=== PATIENT | female | born 1960 | race Caucasian/White ===

== ENCOUNTER 2017-01-21 10:21 | Inpatient (IN) | payer OTHER ==
[~2017-01-21] VITALS: Ht 156.2 cm; Wt 67.3 kg
[~2017-01-21 10:21] MED LIST: ALPR0.5O4 PO; BENA5TAB13 PO; CHOL50002 PO; PAX20; PRAV40TA PO; ROPI5TAB PO; ZOLP10TA1
[2017-01-21 10:32] VITALS: BP 151/105
[2017-01-21] MEDS ORDERED: NACL 0.9% 1,000 ML IV SCH (10:34)
[2017-01-21] MEDS ORDERED: KETOROLAC 30 MG/ML VIAL IVP ONE (10:35)
[2017-01-21] MEDS ORDERED: CLOPIDOGREL 75 MG TAB PO ONE ×2 (10:45)
[2017-01-21] MEDS ORDERED: ASPIRIN 325 MG TAB PO ONE (10:45)
[2017-01-21] MEDS ORDERED: NACL 0.9% 1,000 ML IV ONE (10:50)
--- NOTE | 2017-01-21 10:55 | NUR ---
PATIENT PRESENTS TO ED WITH C/O LEFT SIDED CHEST PAIN RADIATING TO LEFT SCAPULA X 1 WK---WORSENING, PAIN INCREASED WITH MOVEMENTS---MILD NAUSEA--DENIES EMESIS/WATERY OR LOOSE STOOLS. PAINFUL TO TAKE DEEP BREATH HX----HTN, ANXIETY, HYPERLIPIDEMIA, DM, SLEEP APNEA RX----METFORMIN, BENAZEPRIL, ASA, XANAX; DENIES V/D; SKIN IS PINK/WARM/DRY; AAOX4 WITH EVEN AND STEADY GAIT; LUNGS CLEAR BL; HR EVEN AND REGULAR; PT DENIES ANY FEVER, CP, SOB, OR COUGH AT THIS TIME; PATIENT STATES PAIN OF 9/10 AT THIS TIME; VSS; PATIENT POSITIONED FOR COMFORT; HOB ELEVATED; BEDRAILS UP X2; BED DOWN. ER MD MADE AWARE OF PT STATUS.
--- NOTE | 2017-01-21 11:00 | NUR ---
300MG PLAVIX TO BE GIVEN PO VERIFIED WITH DR LEMA
[2017-01-21 11:03] LABS: BASOPHILS # (AUTO) 0.3 K/uL (0.00-0.22); BASOPHILS % (AUTO) 4.3 % (0.0-2.0); EOSINOPHILS # (AUTO) 0.5 K/uL (0-0.4); EOSINOPHILS % (AUTO) 7.1 % (0.0-4.0); HEMATOCRIT 46.4 % (36-48); HEMOGLOBIN 15.2 g/dL (12.0-16.0); LYMPHOCYTES # (AUTO) 3.2 K/uL (2.5-16.5); LYMPHOCYTES % (AUTO) 43.3 % (20.5-51.1); MEAN CORPUSCULAR HEMOGLOBIN 31 pg (27-31); MEAN CORPUSCULAR HGB CONC 33 g/dL (33-37); MEAN CORPUSCULAR VOLUME 93 fL (80-94); MONOCYTES # (AUTO) 0.4 K/uL (0.8-1.0); MONOCYTES % (AUTO) 5.9 % (1.7-9.3); NEUTROPHILS # (AUTO) 2.9 K/uL (1.8-7.7); NEUTROPHILS % (AUTO) 39.4 % (42.2-75.2); PLATELET COUNT (AUTO) 362 K/uL (140-450); RED BLOOD CELL COUNT(AUTO) 4.97 MIL/uL (4.20-5.40); WHITE BLOOD COUNT (AUTO) 7.3 K/uL (4.8-10.8)
[2017-01-21 11:16] LABS: ANION GAP 18.9 (8-16); CALCIUM 10.1 mg/dL (8.5-10.1); CARBON DIOXIDE 22.3 mmol/L (21-32); CREATININE 0.9 mg/dL (0.6-1.3); POTASSIUM 4.2 mmol/L (3.5-5.1)
[2017-01-21 11:22] LABS: ALBUMIN 4.3 g/dL (3.4-5.0); TOTAL BILIRUBIN 0.3 mg/dL (0.0-1.0)
[2017-01-21 11:27] LABS: PARTIAL THROMBOPLASTIN TIME 26.7 secs (22-35.6); PROTHROMBIN TIME 10.4 secs (10.8-13.4)
[2017-01-21 11:31] LABS: AMYLASE 68 U/L (25-115); LIPASE 196 U/L (73-393)
[2017-01-21 11:41] LABS: D-DIMER < 100 ng/ml (0-400)
[2017-01-21 11:46] LABS: BILIRUBIN,URINE NEGATIVE (NEGATIVE); BLOOD, URINE 1+ (NEGATIVE); COLOR,URINE YELLOW (YELLOW); LEUKOCYTE ESTERASE ,URINE NEGATIVE (NEGATIVE); NITRITE, URINE NEGATIVE (NEGATIVE); PH,URINE 5.5 (5.0-9.0); PROTEIN,URINE TRACE (NEGATIVE); UGLUCOSE NEGATIVE (NEGATIVE); UROBILINOGEN,URINE 0.2 EU/dL (0.2 - 1)
[2017-01-21 11:47] LABS: APPEARANCE,URINE SLIGHTLY HAZY (CLEAR)
[2017-01-21 11:51] LABS: AMPHETAMINE, URINE NEG. ng/ml (NEG <=1000); BARBITURATE, URINE NEG. ng/ml (NEG <=200); BENZODIAZEPINE, URINE NEG. ng/mL (NEG <=200); CANNABINOID, URINE NEG. ng/mL (NEG <=50); COCAINE, URINE NEG. ng/mL (NEG <=300); OPIATE, URINE NEG. ng/mL (NEG <=2000); PHENCYCLIDINE SCREEN,URINE NEG. ng/mL (NEG <=25)
[2017-01-21 11:54] LABS: RBC,URINE 3-10 (FEW) /HPF (0-5)
[2017-01-21 11:55] LABS: BACTERIA,URINE 0-2 (RARE) /HPF (None Seen); MUCUS,URINE None Seen /LPF (None Seen); SQUAMOUS EPITHELIAL CELL,UR 0-3 (FEW) /LPF (0-3 (FEW)); WBC,URINE 0-5 (RARE) /HPF (0-5)
[2017-01-21] MEDS ORDERED: hydrALAZINE 20 MG/ML VIAL IVP PRN (13:10)
[2017-01-21] MEDS ORDERED: HYDROcodone/APAP 5/325 MG 1 TAB TAB PO PRN (13:10)
[2017-01-21] MEDS ORDERED: LOVENOX 1MG/KG Q12H SUBQ SCH (13:10)
[2017-01-21] MEDS ORDERED: ONDANSETRON 4 MG/2 ML VIAL IVP PRN (13:10)
[2017-01-21] MEDS ORDERED: LORazepam 2 MG/ML VIAL IVP PRN (13:10)
[2017-01-21] MEDS ORDERED: ACETAMINOPHEN 325 MG TAB PO PRN (13:10)
[2017-01-21] MEDS ORDERED: ZOLPIDEM 10 MG TAB PO PRN ×2 (13:25→22:00)
--- NOTE | 2017-01-21 13:25 | NUR ---
Patient will be admitted to care of DR DOUGHERTY. Admited to TELE. Will go to room 112A. Belongings list completed. Report to BENTON HANEY.
[2017-01-21] MEDS ORDERED: FUROSEMIDE 40 MG/4 ML VIAL IVP SCH (13:34)
[2017-01-21 13:47] VITALS: BP 136/94
--- NOTE | 2017-01-21 13:47 | NUR ---
PT ARRIVED FROM ER VIA GURANABEL, PT IS AAO4, ON ROOM AIR, IV RIGHT UA 22G SALINE LOCK PATENT AND INTACT, INITIAL ASSESSMENT COMPLETED, REVIEWED PLAN OF CARE WITH PT, PT VERBALIZED UNDERSTANDING, ORIENTED PT TO ROOM AND ENVIRONMENT, ALL NEEDS MET. WILL CONTINUE TO MONITOR.
[2017-01-21] MEDS: HYDROcodone/APAP 5/325 MG 1 TAB TAB PO PRN ×3 (15:40→20:22)
--- NOTE | 2017-01-21 15:45 | NUR ---
PT CURRENTLY RESTING IN BED WATCHING TV, ALL SAFETY PRECAUTIONS MET, CALL LIGHT WITHIN REACH, WILL CONTINUE TO MONITOR
[2017-01-21 16:00] VITALS: BP 132/82
--- NOTE | 2017-01-21 17:59 | NUR ---
CHECKED IN ON PT NO SIGNS OF DISTRESS NOTED, PT VISITING WITH FAMILY AT BEDSIDE, ALL NEEDS MET, SAFETY PRECAUTIONS MET, CALL LIGHT WITHIN REACH, WILL CONTINUE TO MONITOR.
--- NOTE | 2017-01-21 19:10 | NUR ---
ENDORSED PLAN OF CARE TO NIGHT NURSE, PT STABLE CONDITION.
--- NOTE | 2017-01-21 19:15 | NUR ---
RECEIVED PATIENT IN STABLE CONDITION FROM AM NURSE. AWAKE, ALERT ORIENTED X4. ON TELE MONITOR. NO C/O PAIN AT THIS TIME.IV ACCESS ON THE RIGHT UPPER ARM GAUGE#22, CLEAR AND PATENT. AMBULATORY. PLAN OF CARE DISCUSSED AND VERBALIZED UNDERSTANDING. CALL LIGHT WITHIN REACH, BED IN LOW POSITION. WILL CONTINUE TO MONITOR.
[2017-01-21 20:00] VITALS: BP 119/71
[2017-01-21] MEDS: ENOXAPARIN 60 MG/0.6 ML SYR SUBQ SCH (20:24)
[2017-01-21] MEDS ORDERED: rOPINIRole 1 MG TAB PO SCH (21:00)
--- NOTE | 2017-01-21 22:00 | NUR ---
PATIENT REFUSED 5 MG OF AMBIEN, SHE STATED SHE TAKES 10 MG OF AMBIEN AT HOME. PAGED DR. DOUGHERTY , DR REINA SIGNAL INTELLIGENCE ANALYST. CALLED BACK WITH NEW ORDER.
--- NOTE | 2017-01-22 00:05 | NUR ---
KEPT PT NPO FOR PATRIAISCAN IN AM. VERBALIZED UNDERSTANDING.
[2017-01-22 00:31] VITALS: BP 124/77
--- NOTE | 2017-01-22 03:00 | NUR ---
SLEEPING WELL. NO S/S OF ANY DISCOMFORT NOR PAIN NOTED.
[2017-01-22 04:30] VITALS: BP 135/91
[2017-01-22 06:26] LABS: BASOPHILS # (AUTO) 0.2 K/uL (0.00-0.22); BASOPHILS % (AUTO) 2.9 % (0.0-2.0); EOSINOPHILS # (AUTO) 0.5 K/uL (0-0.4); HEMATOCRIT 40.9 % (36-48); HEMOGLOBIN 13.7 g/dL (12.0-16.0); LYMPHOCYTES # (AUTO) 2.5 K/uL (2.5-16.5); MEAN CORPUSCULAR HEMOGLOBIN 31 pg (27-31); MEAN CORPUSCULAR HGB CONC 34 g/dL (33-37); MEAN CORPUSCULAR VOLUME 94 fL (80-94); MONOCYTES # (AUTO) 0.5 K/uL (0.8-1.0); MONOCYTES % (AUTO) 8.3 % (1.7-9.3); NEUTROPHILS # (AUTO) 2.6 K/uL (1.8-7.7); NEUTROPHILS % (AUTO) 40.8 % (42.2-75.2); PLATELET COUNT (AUTO) 301 K/uL (140-450); RED BLOOD CELL COUNT(AUTO) 4.37 MIL/uL (4.20-5.40); RED CELL DISTRIBUTION WIDTH 12.9 % (11.6-13.7); WHITE BLOOD COUNT (AUTO) 6.3 K/uL (4.8-10.8)
[2017-01-22 06:45] LABS: CHOL/HDL RATIO 4.4 (1-4.5)
[2017-01-22 06:54] LABS: ALBUMIN 3.3 g/dL (3.4-5.0); ANION GAP 11.5 (8-16); CALCIUM 8.6 mg/dL (8.5-10.1); CARBON DIOXIDE 25.5 mmol/L (21-32); CREATININE 0.8 mg/dL (0.6-1.3); TOTAL BILIRUBIN 0.4 mg/dL (0.0-1.0); TOTAL PROTEIN, SERUM 6.8 g/dL (6.4-8.2)
--- NOTE | 2017-01-22 07:25 | NUR ---
ENDORSED PT IN STABLE CONDITION TO AM NURSE.
--- NOTE | 2017-01-22 07:26 | NUR ---
PT AWAKE AND ALERT, NO SIGNS OF ACUTE DISTRESS. BOWEL SOUNDS ACTIVE IN ALL 4 QUADRANTS. AMBULATORY WITH ASSIST. BOWEL AND BLADDER CONTINENCE. SKIN INTACT. PATIENT DENIES PAIN AT THIS TIME. IV PATENT AND ASYMPTOMATIC. BED IN LOW POSITION WITH BILATERAL HALF SIDE RAILS UP, CALL LIGHT WITHIN REACH. RE-ORIENTED PATIENT TO HOSPITAL AND TO UNIT, PT VERBALIZED UNDERSTANDING. WILL CONTINUE TO MONITOR.
[2017-01-22] MEDS ORDERED: REGADENOSON 0.4 MG/5 ML SYR IV SCH (07:37)
[2017-01-22 08:00] VITALS: BP 148/92
[2017-01-22] MEDS: METOPROLOL SUCCINATE 50 MG TABER PO SCH ×2 (08:49→13:07)
[2017-01-22] MEDS: ENOXAPARIN 60 MG/0.6 ML SYR SUBQ SCH (08:56)
[2017-01-22] MEDS ORDERED: PARoxetine 20 MG TAB PO SCH (09:00)
[2017-01-22] MEDS ORDERED: NITROGLYCERIN 0.4 MG/HR PATCH TD SCH (09:00)
[2017-01-22] MEDS ORDERED: ASPIRIN 325 MG TABEC PO SCH (09:00)
--- NOTE | 2017-01-22 09:34 | NUR ---
PATIENT HAS BEEN SCREENED AND CATEGORIZED HIGH NUTRITION RISK. PATIENT WILL BE SEEN WITHIN 1-2 DAYS OF ADMISSION. 01/22/17-01/23/[address]
--- NOTE | 2017-01-22 09:35 | NUR ---
PT RESTING COMFORTABLY IN BED, NO SIGNS OF ACUTE DISTRESS. SAFETY CHECKS IN PLACE, BED IN LOW POSITION WITH BILATERAL HALF SIDE RAILS UP, CALL LIGHT WITHIN REACH. WILL CONTINUE TO MONITOR.
--- NOTE | 2017-01-22 10:00 | NUR ---
PT SEEN BY DR DOUGHERTY, RECEIVED NEW ORDERS. NOTED, WILL CARRY OUT.
[2017-01-22] MEDS ORDERED: FENO145T PO (10:11)
[2017-01-22] MEDS ORDERED: METO50TE2 PO (10:11)
[2017-01-22] MEDS ORDERED: ASPI-1206 PO (10:11)
--- NOTE | 2017-01-22 10:15 | NUR ---
RECEIVED ORDER OKAY TO DISCHARGE PER DR DOUGHERTY ONCE CLEARED BY [facility].
--- NOTE | 2017-01-22 11:55 | NUR ---
PATIENT TAKEN OFF UNIT BY JOSE ARMANDO FROM RADIOLOGY FOR LEXISCAN STRESS TEST. PT AWAKE AND ALERT, NO SIGNS OF ACUTE DISTRESS.
[2017-01-22 12:00] VITALS: BP 149/87
--- NOTE | 2017-01-22 13:08 | NUR ---
PATIENT BLOOD PRESSURE IS 201/107 WITH HEAR RATE [address] COBB GIVE ORDERED METOPROLOL 25MG AND PRN APRESOLINE OF 5MG IVP INSTEAD OF 10MG. NOTED, AND CARRIED OUT. WILL CONTINUE TO MONITOR PATIENT.
--- NOTE | 2017-01-22 13:27 | NUR ---
CM NOTE INITIAL REVIEW FAXED TO [facility] [phone] PH BENEDICTO [phone] NOVEMBER [phone]
--- NOTE | 2017-01-22 13:30 | NUR ---
LEXISCAN STRESS TEST DONE
--- NOTE | 2017-01-22 14:24 | NUR ---
CAME BACK FROM LUNCH PATIENT IS BACK IN ROOM ON UNIT RESTING COMFORTABLY IN BED, NO SIGNS OF ACUTE DISTRESS. LEXISCAN STRESS TEST DONE. NO RESULTS OR NEW DIET ORDER AT THIS TIME. PAGED DR COBB FOR DIET ORDER.
--- NOTE | 2017-01-22 14:52 | NUR ---
HAVE NOT RECEIVED A CALL BACK FROM DR COBB, PAGED AGAIN TO OBTAIN DIET ORDER FOR PATIENT.
--- NOTE | 2017-01-22 14:55 | NUR ---
SPOKE WITH EL VILLEGAS TO CHANGE DIET TO CARDIAC DIET, NOTED, WILL CARRY OUT.
[2017-01-22 16:00] VITALS: BP 152/95
[2017-01-22] MEDS: HYDROcodone/APAP 5/325 MG 1 TAB TAB PO PRN (16:35)
--- NOTE | 2017-01-22 17:13 | NUR ---
INFORMED DR DOUGHERTY OF RESULTS OF EL VALENZUELA TO DISCHARGE F/U WITHIN 1 WEEK WITH PCP.
--- NOTE | 2017-01-22 17:13 | NUR ---
PER EL VILLEGAS TO DISCHARGE F/U WITHIN 1 WEEK WITH PCP.
--- NOTE | 2017-01-22 18:15 | NUR ---
PT AWAKE AND ALERT, NO SIGNS OF ACUTE DISTRESS. EDUCATED PATIENT REGARDING DISCHARGE INSTRUCTIONS INCLUDING RESUMING LIGHT ACTIVITY, FOLLOWING UP WITH PCP AND ELEMENTARY ASSISTANT PRINCIPAL WITHIN 1 WEEK, NEW PRESCRIPTIONS, AND SIGNS/SYMPTOMS OF WORSENING CONDITION AND INFECTION. PT VERBALIZED UNDERSTANDING. CUT OFF WRIST BANDS, TOOK OFF TELE MONITOR. DISCONTINUED IV. WHEELED PATIENT OUT TO FRONT LOBBY TO GO HOME VIA PRIVATE AUTO WITH FAMILY.
[2017-01-23] MEDS ORDERED: ATORVASTATIN 20 MG TAB PO SCH (09:00)
== END 2017-01-22 18:15 | disposition home or self-care (01) | DRG 198 ==
LOC: MED 10:21 → MTU 13:09
PROVIDERS: ADMIT Hospitalist; ATTEND Hospitalist
DX: R07.9 Chest pain, unspecified (principal); I25.10 Atherosclerotic heart disease of native coronary artery without angina pectoris; E11.65 Type 2 diabetes mellitus with hyperglycemia; I16.0 Hypertensive urgency; F33.9 Major depressive disorder, recurrent, unspecified; R94.31 Abnormal electrocardiogram [ECG] [EKG]; I10 Essential (primary) hypertension; E78.00 Pure hypercholesterolemia, unspecified; G47.30 Sleep apnea, unspecified; J45.909 Unspecified asthma, uncomplicated; M19.90 Unspecified osteoarthritis, unspecified site; E78.5 Hyperlipidemia, unspecified; J44.9 Chronic obstructive pulmonary disease, unspecified; G25.81 Restless legs syndrome; F41.9 Anxiety disorder, unspecified; F17.200 Nicotine dependence, unspecified, uncomplicated; Z87.898 Personal history of other specified conditions; Z87.81 Personal history of (healed) traumatic fracture; Z79.899 Other long term (current) drug therapy
CPT/HCPCS: 36415; 71010; 80053; 80305; 81001; 81025; 82150; 82553; 82948; 83690; 83880; 84484; 85025; 85379; 85610; 85730; 87081; 93005; 93017; 96361; 96374; 99285; A9500; A9502; J0360; J1650; J1885; J1940; J2785; J7030; Q0092

== ENCOUNTER 2017-09-20 15:44 | Emergency (ER) | payer MEDICAID, OTHER ==
[~2017-09-20] VITALS: Ht 154.9 cm; Wt 66.7 kg
[~2017-09-20 15:44] MED LIST changes: +ASPI-1206 PO; -BENA5TAB13 PO; +FENO145T PO; +METO50TE2 PO; -PAX20; +PAX20 PO; -ZOLP10TA1; +ZOLP10TA1 PO
[2017-09-20 15:52] VITALS: BP 190/100
--- NOTE | 2017-09-20 16:01 | NUR ---
PT AMBULATED TO BED 12
--- NOTE | 2017-09-20 16:01 | NUR ---
PATIENT PRESENTS TO ED WITH CHEST PAIN 5/10 AND ANXIETY . PT STATES SHE BECAME ANXIOUS AFTER VISITING HER PRIMARY DOCTOR SHE DOES HAVE A HISTORY OF HTN. AND PAST DRUG ABUSE. PT PLACED ON MONITOR AND MADE COMFORTABLE. EKG DONE AT THIS TIME WITH SINUS RYTHM.. VS t 97.9 P 73 B/P 177/98 02 98%. PT MENTIONED SHE TOOK ZANEX RIGHT BEFORE SHE ARRIVED IN ER.
--- NOTE | 2017-09-20 16:02 | NUR ---
PATIENT PRESENTS TO ED WITH CHEST PAIN 5/10 THAT FEELS LIKE TIGHTNESS OR HEAVINESS AND ANXIETY . PT APPEARS CALM NOT DIAPHORETIC SKIN COOL TO THE TOUCH PT WAS NOT NOTED FIDGITING. HER RESPIRATINS ARE EVEN AND UNLABORED AT THIS TIME. STATES SHE BECAME ANXIOUS AFTER VISITING HER PRIMARY DOCTOR SHE DOES HAVE A HISTORY OF HTN. AND PAST DRUG ABUSE. PT PLACED ON MONITOR AND MADE COMFORTABLE. EKG DONE AT THIS TIME WITH SINUS RYTHM.. VS t 97.9 P 73 B/P 177/98 02 98%. PT MENTIONED SHE TOOK XANAX RIGHT BEFORE SHE ARRIVED IN ER.
[2017-09-20] MEDS ORDERED: ASPI81CT89 PO (16:12)
[2017-09-20] MEDS ORDERED: ACET-2214 PO (16:12)
[2017-09-20] MEDS ORDERED: ALPR0.252 PO (16:12)
[2017-09-20] MEDS ORDERED: VITD1000 PO (16:12)
[2017-09-20] MEDS ORDERED: ORE25 PO (16:12)
[2017-09-20] MEDS ORDERED: METF500T PO (16:12)
[2017-09-20] MEDS ORDERED: LORA10TA19 PO (16:12)
[2017-09-20] MEDS ORDERED: METO25TA PO (16:12)
[2017-09-20] MEDS ORDERED: TRAM50TA1 PO (16:12)
[2017-09-20] MEDS ORDERED: ALPRAZolam 0.5 MG TAB PO SCH (17:25)
[2017-09-20 18:03] LABS: ANION GAP 13.7 (8-16); CARBON DIOXIDE 27.4 mmol/L (21-32); POTASSIUM 3.1 mmol/L (3.5-5.1)
[2017-09-20 18:04] LABS: BASOPHILS # (AUTO) 0.1 K/uL (0.00-0.22); BASOPHILS % (AUTO) 0.7 % (0.0-2.0); EOSINOPHILS # (AUTO) 0.2 K/uL (0-0.4); EOSINOPHILS % (AUTO) 1.7 % (0.0-4.0); HEMATOCRIT 41.4 % (36-48); HEMOGLOBIN 14.3 g/dL (12.0-16.0); LYMPHOCYTES # (AUTO) 2.7 K/uL (2.5-16.5); LYMPHOCYTES % (AUTO) 26.4 % (20.5-51.1); MEAN CORPUSCULAR HEMOGLOBIN 31 pg (27-31); MEAN CORPUSCULAR HGB CONC 35 g/dL (33-37); MEAN CORPUSCULAR VOLUME 90.7 fL (80-94); MONOCYTES # (AUTO) 0.8 K/uL (0.8-1.0); MONOCYTES % (AUTO) 7.5 % (1.7-9.3); NEUTROPHILS # (AUTO) 6.5 K/uL (1.8-7.7); NEUTROPHILS % (AUTO) 63.7 % (42.2-75.2); PLATELET COUNT (AUTO) 353 K/uL (140-450); RED BLOOD CELL COUNT(AUTO) 4.56 MIL/uL (4.20-5.40); RED CELL DISTRIBUTION WIDTH 13.6 % (11.6-13.7); WHITE BLOOD COUNT (AUTO) 10.2 K/uL (4.8-10.8)
[2017-09-20 18:09] LABS: ALBUMIN 4.2 g/dL (3.4-5.0); TOTAL BILIRUBIN 0.3 mg/dL (0.0-1.0)
--- NOTE | 2017-09-20 18:50 | NUR ---
PT RETURNED FROM CT AT THIS TIME. NO S/S OF PAIN OR DISTRESS.
[2017-09-20 19:06] LABS: APPEARANCE,URINE CLEAR (CLEAR); BILIRUBIN,URINE NEGATIVE (NEGATIVE); BLOOD, URINE TRACE-I (NEGATIVE); COLOR,URINE YELLOW (YELLOW); LEUKOCYTE ESTERASE ,URINE NEGATIVE (NEGATIVE); NITRITE, URINE NEGATIVE (NEGATIVE); UGLUCOSE NEGATIVE (NEGATIVE)
[2017-09-20] MEDS ORDERED: POTASSIUM CHLORIDE 10 MEQ TABER PO ONE (19:10)
[2017-09-20 19:13] LABS: BARBITURATE, URINE NEG. ng/ml (NEG <=200); BENZODIAZEPINE, URINE NEG. ng/mL (NEG <=200); CANNABINOID, URINE NEG. ng/mL (NEG <=50); COCAINE, URINE NEG. ng/mL (NEG <=300); OPIATE, URINE NEG. ng/mL (NEG <=2000); PHENCYCLIDINE SCREEN,URINE NEG. ng/mL (NEG <=25)
[2017-09-20 20:00] VITALS: BP 113/79
--- NOTE | 2017-09-20 20:00 | NUR ---
Patient discharged with v/s stable. Written and verbal after care instructions given and explained. Patient alert, oriented and verbalized understanding of instructions. Ambulatory with steady gait. All questions addressed prior to discharge. ID band removed. Patient advised to follow up with PMD. Rx of XANAX 0.5MG, ROSITA CIEL 10ML PRN given. Patient educated on indication of medication including possible reaction and side effects. Opportunity to ask questions provided and answered.
== END 2017-09-20 19:59 | disposition home or self-care (01) ==
LOC: MED 15:44
DX: I10 Essential (primary) hypertension (principal); E87.6 Hypokalemia; F41.9 Anxiety disorder, unspecified; J45.909 Unspecified asthma, uncomplicated; E11.9 Type 2 diabetes mellitus without complications; Z79.82 Long term (current) use of aspirin; Z79.84 Long term (current) use of oral hypoglycemic drugs; Z79.899 Other long term (current) drug therapy
CPT/HCPCS: 36415; 70450; 71045; 80053; 80305; 81003; 82550; 84484; 85025; 99285; Q0092

== ENCOUNTER 2018-04-22 14:45 | Emergency (ER) | payer OTHER ==
[~2018-04-22] VITALS: Ht 156.2 cm; Wt 68.7 kg
[~2018-04-22 14:45] MED LIST changes: +ACET-2214 PO; +ALPR0.252 PO; -ALPR0.5O4 PO; -ASPI-1206 PO; +ASPI81CT89 PO; -CHOL50002 PO; -FENO145T PO; +LORA10TA19 PO; +METF500T PO; +METO25TA PO; -METO50TE2 PO; +ORE25 PO; -ROPI5TAB PO; +TRAM50TA1 PO; +VITD1000 PO
[2018-04-22 15:05] VITALS: BP 133/97
--- NOTE | 2018-04-22 15:17 | NUR ---
PT AMBULATES TO BED 1
--- NOTE | 2018-04-22 15:20 | NUR ---
PATIENT BIB FRIEND. COMPLAINING OF ANXIETY. SHE STATES SHE JUST NEEDS A REFILL OF HER ANTI ANXIETY MED TO HOLD HER OVER TILL SHE SEES HER DOCTOR. DENIES N/V/D; SKIN IS PINK/WARM/DRY; AAOX4 WITH EVEN AND STEADY GAIT; LUNGS CLEAR BL; HR EVEN AND REGULAR; PT DENIES ANY FEVER, CP, SOB, OR COUGH AT THIS TIME; PATIENT STATES PAIN OF 0/10 AT THIS TIME; VSS; PATIENT POSITIONED FOR COMFORT; HOB ELEVATED; BEDRAILS UP X2; BED DOWN. ER MD MADE AWARE OF PT STATUS.
[2018-04-22 16:15] VITALS: BP 127/92
--- NOTE | 2018-04-22 16:15 | NUR ---
Patient discharged with v/s stable. Written and verbal after care instructions given and explained. Patient verbalized understanding. Ambulatory with steady gait. All questions addressed prior to discharge. Advised to follow up with PMD.
== END 2018-04-22 16:15 | disposition home or self-care (01) ==
LOC: MED 14:45
DX: F41.9 Anxiety disorder, unspecified (principal); J45.909 Unspecified asthma, uncomplicated; E11.9 Type 2 diabetes mellitus without complications; Z79.899 Other long term (current) drug therapy; Z79.82 Long term (current) use of aspirin; Z79.84 Long term (current) use of oral hypoglycemic drugs
CPT/HCPCS: 82948; 99281; 99284

== ENCOUNTER 2018-09-16 12:18 | Emergency (ER) | payer OTHER ==
[~2018-09-16] VITALS: Ht 157.5 cm; Wt 66.7 kg
[~2018-09-16 12:18] MED LIST changes: +ASPI-1718 PO; -ASPI81CT89 PO
--- NOTE | 2018-09-16 12:18 | NUR ---
Patient SHONDA YAÑEZ, triaged by RN and transferred to ED lobby to wait for an available bed.
[2018-09-16 12:24] VITALS: BP 133/88
--- NOTE | 2018-09-16 12:30 | NUR ---
AAO 58 YR OLD F ANSWERING ALL QUESTIONS APPROPRIATELY, APEARS MORE CALM AT THIS TIME, GIVEN ORANGE JUICE AND WHEEL CHAIR ASSISTED TO THE LOBBY PER LENS BLOCK GAUGERBENTON MOSELEY
--- NOTE | 2018-09-16 13:15 | NUR ---
PATIENT BIB W/C TO ER BED 11.
--- NOTE | 2018-09-16 13:29 | NUR ---
PATIENT PRESENTS TO ED WITH ACCOMPANIED BY FAMILY C/O CARPAL SPASM, NERVOUS, ANXIOUS X THIS MORNING PT ADMITS TOOK 1 0.5MG XANAX FOR ANXIETY BUT DID NOT WANT TO TAKE MORE 2 TO SHE ALSO BABYSITS FULL CLEAR SPEECH, AMBULATORY WITH STEADY GAIT, NO FACIAL ASYMMETRY NOTED, MOVING ALL EXTREMITIES EQUALLY, AND DENIES INJURY . DENIES N/V/D; SKIN IS PINK/WARM/DRY; AAOX4 WITH EVEN AND STEADY GAIT; LUNGS CLEAR BL; HR EVEN AND REGULAR; PT DENIES ANY FEVER, CP, SOB, OR COUGH AT THIS TIME; PATIENT STATES PAIN OF 0/10 AT THIS TIME; VSS; PATIENT POSITIONED FOR COMFORT; HOB ELEVATED; BEDRAILS UP X2; BED DOWN. ER MD MADE AWARE OF PT STATUS.
[2018-09-16] MEDS ORDERED: hydrOXYzine HCL 25 MG TAB PO ONE (14:20)
[2018-09-16] MEDS ORDERED: LORazepam 1 MG TAB PO ONE (14:20)
[2018-09-16 16:00] VITALS: BP 130/86
--- NOTE | 2018-09-16 16:00 | NUR ---
Patient discharged with v/s stable. Written and verbal after care instructions given and explained. Patient alert, oriented and verbalized understanding of instructions. Ambulatory with steady gait. All questions addressed prior to discharge. ID band removed. Patient advised to follow up with PMD. Rx of VISTARIL given. Patient educated on indication of medication including possible reaction and side effects. Opportunity to ask questions provided and answered.
== END 2018-09-16 16:00 | disposition home or self-care (01) ==
LOC: MED 12:18
DX: R06.4 Hyperventilation (principal); F41.0 Panic disorder [episodic paroxysmal anxiety]; M62.838 Other muscle spasm; E11.9 Type 2 diabetes mellitus without complications; J45.909 Unspecified asthma, uncomplicated; I10 Essential (primary) hypertension; Z79.82 Long term (current) use of aspirin; Z79.84 Long term (current) use of oral hypoglycemic drugs; Z79.899 Other long term (current) drug therapy
CPT/HCPCS: 82948; 99283

== ENCOUNTER 2018-12-26 17:08 | Emergency (ER) | payer OTHER ==
[~2018-12-26] VITALS: Ht 157.5 cm; Wt 68.0 kg
[2018-12-26 17:11] VITALS: BP 171/90
--- NOTE | 2018-12-26 18:10 | NUR ---
PATIENT BIB W/C TO ER BED 9.
--- NOTE | 2018-12-26 18:22 | NUR ---
BS: 149
--- NOTE | 2018-12-26 18:25 | NUR ---
SHONDA FROM HOME DUE TO ANXIETY. PT STATES THAT SHE WAS WATCHING HER GRANDKIDS AND SHE HAD AN ANXIETY ATTACK. PT HAS A HX OF ANXIETY AND WAS PREVIOUSLY TAKING XANAX. PT HAS STEADY GAIT. PT PLACED ON FULL GLOBAL CATEGORY MANAGER. ER TO EVALUTE PT.
--- NOTE | 2018-12-26 19:05 | NUR ---
RECEIVED REPORT FROM BENTON BANG. WILL CONTINUE TO MONITOR.
--- NOTE | 2018-12-26 19:38 | NUR ---
PT STATES "I FEEL ALOT BETTER, THE TINGLING IN MY LOWER EXTREMITIES HAS DECREASED." FAMILY AT BEDSIDE. VSS. WILL CONTINUE TO MONITOR.
[2018-12-26 19:43] VITALS: BP 157/77
--- NOTE | 2018-12-26 19:48 | NUR ---
Patient discharged with v/s stable. Written and verbal after care instructions given and explained. PT UNDERSTOOD INFORMATION REGARDING ANXIETY ATTACKS AND RECOMMENDED TO SEE A COUNSELOR. Patient alert, oriented and verbalized understanding of instructions. Ambulatory with steady gait. All questions addressed prior to discharge. ID band removed. Patient advised to follow up with PMD. Rx of ATARAX WAS given. Patient educated on indication of medication including possible reaction and side effects. Opportunity to ask questions provided and answered.
== END 2018-12-26 19:43 | disposition home or self-care (01) ==
LOC: MED 17:08
DX: F41.9 Anxiety disorder, unspecified (principal); I10 Essential (primary) hypertension; E11.9 Type 2 diabetes mellitus without complications; J45.909 Unspecified asthma, uncomplicated; Z79.891 Long term (current) use of opiate analgesic; Z79.84 Long term (current) use of oral hypoglycemic drugs; Z79.899 Other long term (current) drug therapy; Z79.1 Long term (current) use of non-steroidal anti-inflammatories (NSAID)
CPT/HCPCS: 81025; 82948; 99284

== ENCOUNTER 2019-02-07 21:09 | Emergency (ER) | payer OTHER ==
[~2019-02-07] VITALS: Ht 154.9 cm; Wt 65.4 kg
--- NOTE | 2019-02-07 21:38 | NUR ---
TO LOBBY A/W BED AMBULATORY
[2019-02-07 21:41] VITALS: BP 133/71
--- NOTE | 2019-02-08 01:00 | NUR ---
PATIENT CALLED TO PUT ON A BED NO RESPONSE PATIENT LEFT WITHOUT BEING SEEN BY DR. TOMPKINS. NO FURTHER CARE PROVIDED FOR PATIENT.
--- NOTE | 2019-02-08 01:05 | NUR ---
CALLED THE SECOND TIME NO RESPONSE
--- NOTE | 2019-02-08 01:10 | NUR ---
CALLED THE THIRD TIME NO RESPONSE
== END 2019-02-08 01:00 | disposition left against medical advice (07) ==
LOC: MED 21:09
DX: R10.30 Lower abdominal pain, unspecified (principal); R11.0 Nausea; Z53.21 Procedure and treatment not carried out due to patient leaving prior to being seen by health care provider

== ENCOUNTER 2019-02-08 10:07 | Emergency (ER) | payer OTHER ==
[~2019-02-08] VITALS: Ht 154.9 cm; Wt 65.3 kg
[2019-02-08 10:16] VITALS: BP 98/65
--- NOTE | 2019-02-08 10:27 | NUR ---
PT AMBULATED TO ER BED 05
--- NOTE | 2019-02-08 10:46 | NUR ---
58F C/O GENERALIZED WEAKNESS, BODY BURNING PAIN X 1 WEEK. GENERALIZED PAIN OVER BODY COMES AND GOES. DENIES N/V/D. STATES DIZZINESS, DECREASED APPETITE. STATES SHE HAS BEEN "FEELING WARM" DAILY BUT HAS NOT CHECKED TEMPERATURE AT HOME. AOX4. NAD. MED HX:DM, HTN, HIGH CHOLESTEROL, GALL BLADDER REMOVAL
--- NOTE | 2019-02-08 10:56 | NUR ---
DR. ROSADO EVALUATING PATIENT AT BEDSIDE.
[2019-02-08] MEDS ORDERED: NACL 0.9% 500 ML IV ONE (11:40)
--- NOTE | 2019-02-08 11:41 | NUR ---
Bree colvin in ED - 02/08/19 at 1205 by AMADOR 500 ML NS BOLUS INITIATED.
--- NOTE | 2019-02-08 11:43 | NUR ---
DR. ROSADO AWARE THAT PT TOOK METFORMIN THIS MORNING 829. PER DR. ROSADO, ADMIN [address] Addendum: 02/08/19 at 1205 by AMADOR 500 ML NS BOLUS INITIATED.
[2019-02-08] MEDS ORDERED: NACL 0.9% 500 ML IV STA ×2 (12:01)
--- NOTE | 2019-02-08 12:04 | NUR ---
500 ML NS BOLUS FINISHED INFUSING.
[2019-02-08 12:05] LABS: BASOPHILS % (AUTO) 0.5 % (0.0-2.0); EOSINOPHILS # (AUTO) 0.3 K/uL (0-0.4); EOSINOPHILS % (AUTO) 4.6 % (0.0-4.0); HEMATOCRIT 35.1 % (36-48); HEMOGLOBIN 11.8 g/dL (12.0-16.0); LYMPHOCYTES # (AUTO) 1.8 K/uL (2.5-16.5); LYMPHOCYTES % (AUTO) 26.2 % (20.5-51.1); MEAN CORPUSCULAR HEMOGLOBIN 31 pg (27-31); MEAN CORPUSCULAR HGB CONC 34 g/dL (33-37); MONOCYTES # (AUTO) 0.5 K/uL (0.8-1.0); MONOCYTES % (AUTO) 7.3 % (1.7-9.3); NEUTROPHILS # (AUTO) 4.3 K/uL (1.8-7.7); NEUTROPHILS % (AUTO) 61.4 % (42.2-75.2); PLATELET COUNT (AUTO) 327 K/uL (140-450); RED BLOOD CELL COUNT(AUTO) 3.81 MIL/uL (4.20-5.40); RED CELL DISTRIBUTION WIDTH 12.8 % (11.6-13.7)
--- NOTE | 2019-02-08 12:06 | NUR ---
CT AWARE THAT 500 ML BOLUS COMPLETE AND CONSENT SIGNED. CT WILL WAIT FOR LAB RESULTS.
[2019-02-08] MEDS ORDERED: NACL 0.9% 500 ML IV SCH (12:20)
[2019-02-08 12:24] LABS: ALBUMIN 3.4 g/dL (3.4-5.0); ANION GAP 14.8 (8-16); CARBON DIOXIDE 25.2 mmol/L (21-32); CREATININE 1.2 mg/dL (0.6-1.3); TOTAL BILIRUBIN 0.4 mg/dL (0.0-1.0)
--- NOTE | 2019-02-08 12:52 | NUR ---
PT BACK FROM CT.
[2019-02-08] MEDS ORDERED: POTASSIUM CHLORIDE 10 MEQ TABER PO ONE (13:50)
[2019-02-08] MEDS ORDERED: MAGNESIUM CHLORIDE 64 MG TABEC PO SCH (15:14)
[2019-02-08 15:19] LABS: APPEARANCE,URINE CLEAR (CLEAR); BILIRUBIN,URINE NEGATIVE (NEGATIVE); BLOOD, URINE TRACE-I (NEGATIVE); COLOR,URINE YELLOW (YELLOW); LEUKOCYTE ESTERASE ,URINE NEGATIVE (NEGATIVE); NITRITE, URINE NEGATIVE (NEGATIVE); PH,URINE 6.5 (5.0-9.0); UGLUCOSE NEGATIVE (NEGATIVE)
[2019-02-08 15:29] LABS: RBC,URINE 0-5 /HPF (0-5); WBC,URINE 0-5 /HPF (0-5)
--- NOTE | 2019-02-08 17:29 | NUR ---
WAITING FOR D/C PAPERWORK.
[2019-02-08 17:46] VITALS: BP 116/57
[2019-02-09] MEDS ORDERED: MAGNESIUM CHLORIDE 64 MG TABEC PO SCH (15:14)
[2019-02-10 12:07] LABS: ANTI DOUBLE STRANDED DNA AB 1 IU/mL (0-9); ANTI-NUCLEAR ANTIBODY,DIRECT Negative (Negative)
[2019-02-11 07:07] LABS: ANTI-NUCLEAR ANTIBODY TITER Negative (.)
== END 2019-02-08 17:45 | disposition home or self-care (01) ==
LOC: MED 10:07
DX: E87.6 Hypokalemia (principal); R53.1 Weakness; J45.909 Unspecified asthma, uncomplicated; E11.9 Type 2 diabetes mellitus without complications; I10 Essential (primary) hypertension; Z79.82 Long term (current) use of aspirin; Z79.899 Other long term (current) drug therapy
CPT/HCPCS: 36415; 74177; 80053; 81001; 82550; 82553; 82948; 83690; 83735; 84484; 85025; 86038; 93005; 99284; J7030; Q9967

== ENCOUNTER 2019-03-26 16:49 | Emergency (ER) | payer OTHER ==
[~2019-03-26] VITALS: Ht 154.9 cm; Wt 64.0 kg
[2019-03-26 16:56] VITALS: BP 167/91
--- NOTE | 2019-03-26 17:35 | NUR ---
C/O SYNCOPE EPISODE TODAY, + DIZZINESS/HEADACHE. ALSO C/O BURNING FEELING OF ABDOMEN GREATER ON RLQ. HX OF DM, HTN, ANXIETY, BS 106 MG/DL
[2019-03-26 17:54] LABS: BASOPHILS % (AUTO) 0.6 % (0.0-2.0); EOSINOPHILS # (AUTO) 0.4 K/uL (0-0.4); EOSINOPHILS % (AUTO) 4.7 % (0.0-4.0); HEMATOCRIT 37.5 % (36-48); HEMOGLOBIN 12.6 g/dL (12.0-16.0); LYMPHOCYTES % (AUTO) 36.6 % (20.5-51.1); MEAN CORPUSCULAR HEMOGLOBIN 31 pg (27-31); MEAN CORPUSCULAR HGB CONC 34 g/dL (33-37); MEAN CORPUSCULAR VOLUME 92.8 fL (80-94); MONOCYTES # (AUTO) 0.5 K/uL (0.8-1.0); MONOCYTES % (AUTO) 6.6 % (1.7-9.3); NEUTROPHILS # (AUTO) 4.3 K/uL (1.8-7.7); NEUTROPHILS % (AUTO) 51.5 % (42.2-75.2); PLATELET COUNT (AUTO) 340 K/uL (140-450); RED BLOOD CELL COUNT(AUTO) 4.04 MIL/uL (4.20-5.40); WHITE BLOOD COUNT (AUTO) 8.3 K/uL (4.8-10.8)
[2019-03-26] MEDS ORDERED: NACL 0.9% 1,000 ML IV ONE (17:55)
[2019-03-26 18:13] LABS: APPEARANCE,URINE CLEAR (CLEAR); BILIRUBIN,URINE NEGATIVE (NEGATIVE); BLOOD, URINE NEGATIVE (NEGATIVE); COLOR,URINE YELLOW (YELLOW); LEUKOCYTE ESTERASE ,URINE NEGATIVE (NEGATIVE); NITRITE, URINE NEGATIVE (NEGATIVE); UGLUCOSE NEGATIVE (NEGATIVE)
[2019-03-26 18:15] LABS: ANION GAP 15.6 (8-16); CARBON DIOXIDE 25.6 mmol/L (21-32); POTASSIUM 3.2 mmol/L (3.5-5.1)
[2019-03-26 18:16] LABS: BARBITURATE, URINE NEGATIVE ng/ml (NEG <=200); BENZODIAZEPINE, URINE POSITIVE ng/mL (NEG <=200); COCAINE, URINE NEGATIVE ng/mL (NEG <=300)
[2019-03-26 18:17] LABS: CANNABINOID, URINE NEGATIVE ng/mL (NEG <=50); OPIATE, URINE NEGATIVE ng/mL (NEG <=2000); PHENCYCLIDINE SCREEN,URINE NEGATIVE ng/mL (NEG <=25)
[2019-03-26 18:20] LABS: TOTAL BILIRUBIN 0.3 mg/dL (0.0-1.0)
[2019-03-26 18:21] LABS: ALBUMIN 4.2 g/dL (3.4-5.0)
[2019-03-26] MEDS ORDERED: POTASSIUM CHLORIDE 10 MEQ TABER PO ONE (18:35)
--- NOTE | 2019-03-26 19:20 | NUR ---
PT. AMBULATED TO RESTROOM.
--- NOTE | 2019-03-26 19:33 | NUR ---
PATIENT IN NO DISTRESS AT THIS TIME AND IS SITTING QUIETLY IN BED.
[2019-03-26 20:13] VITALS: BP 132/76
== END 2019-03-26 20:13 | disposition home or self-care (01) ==
LOC: MED 16:49
DX: R42 Dizziness and giddiness (principal); F41.9 Anxiety disorder, unspecified; E87.6 Hypokalemia; E86.0 Dehydration; I10 Essential (primary) hypertension; J45.909 Unspecified asthma, uncomplicated; E11.9 Type 2 diabetes mellitus without complications; Z90.49 Acquired absence of other specified parts of digestive tract; Z79.82 Long term (current) use of aspirin; Z79.84 Long term (current) use of oral hypoglycemic drugs; Z79.899 Other long term (current) drug therapy
CPT/HCPCS: 36415; 71045; 80053; 80305; 81003; 81025; 82948; 84484; 85025; 93005; 96360; 99284; J7030

== ENCOUNTER 2019-04-17 17:23 | Emergency (ER) | payer OTHER ==
[~2019-04-17] VITALS: Ht 157.5 cm; Wt 63.5 kg
[2019-04-17 17:25] VITALS: BP 156/97
--- NOTE | 2019-04-17 17:32 | NUR ---
PT TO BED 1 WITH STEADY GAIT
--- NOTE | 2019-04-17 17:46 | NUR ---
PT PRESENTS TO ED WITH C/O LOWER ABD DISCOMFORT THAT RADIATES TO BOTH LEGS X 6 MONTHS. PT STATES "MY LEGS FEEL LIKE THEY ARE BURNING". PT DENIES PAIN AT THIS TIME. PT DENIES CP, SOB, AND N/V/D. PT STATES , "I THINK PAIN TRIGGERS MY ANXIETY". FAMILY MEMBER AT BEDSIDE. ER MD TO SEE PT.
--- NOTE | 2019-04-17 18:19 | NUR ---
NIYA JOHNSTON AT BEDSIDE.
--- NOTE | 2019-04-17 18:37 | NUR ---
RADIOLOGY AT BEDSIDE.
--- NOTE | 2019-04-17 18:37 | NUR ---
PT STATES THAT SHE IS UNABLE TO PROVIDE URINE AT THIS TIME.
--- NOTE | 2019-04-17 18:49 | NUR ---
LAB AT BEDSIDE.
--- NOTE | 2019-04-17 19:13 | NUR ---
Pt report given to Abbey BHARDWAJ. Transfer of care at this time.
[2019-04-17 19:18] LABS: BASOPHILS # (AUTO) 0.1 K/uL (0.00-0.22); BASOPHILS % (AUTO) 0.6 % (0.0-2.0); EOSINOPHILS # (AUTO) 0.4 K/uL (0-0.4); EOSINOPHILS % (AUTO) 3.8 % (0.0-4.0); HEMATOCRIT 39.5 % (36-48); HEMOGLOBIN 13.3 g/dL (12.0-16.0); LYMPHOCYTES # (AUTO) 2.2 K/uL (2.5-16.5); LYMPHOCYTES % (AUTO) 23.4 % (20.5-51.1); MEAN CORPUSCULAR HEMOGLOBIN 32 pg (27-31); MEAN CORPUSCULAR HGB CONC 34 g/dL (33-37); MEAN CORPUSCULAR VOLUME 93.4 fL (80-94); MONOCYTES # (AUTO) 0.6 K/uL (0.8-1.0); MONOCYTES % (AUTO) 6.1 % (1.7-9.3); NEUTROPHILS # (AUTO) 6.1 K/uL (1.8-7.7); NEUTROPHILS % (AUTO) 66.1 % (42.2-75.2); PLATELET COUNT (AUTO) 390 K/uL (140-450); RED BLOOD CELL COUNT(AUTO) 4.22 MIL/uL (4.20-5.40); WHITE BLOOD COUNT (AUTO) 9.3 K/uL (4.8-10.8)
[2019-04-17 19:30] LABS: ANION GAP 12.9 (8-16); CARBON DIOXIDE 27.7 mmol/L (21-32); CREATININE 0.9 mg/dL (0.6-1.3); POTASSIUM 3.6 mmol/L (3.5-5.1)
[2019-04-17 20:16] LABS: APPEARANCE,URINE CLEAR (CLEAR); BILIRUBIN,URINE NEGATIVE (NEGATIVE); BLOOD, URINE NEGATIVE (NEGATIVE); COLOR,URINE YELLOW (YELLOW); LEUKOCYTE ESTERASE ,URINE NEGATIVE (NEGATIVE); NITRITE, URINE NEGATIVE (NEGATIVE); UGLUCOSE NEGATIVE (NEGATIVE)
[2019-04-17 20:20] VITALS: BP 135/80
--- NOTE | 2019-04-17 20:20 | NUR ---
Patient discharged with v/s stable. Written and verbal after care instructions given and explained. ERMD advised for pt to continue taking her Lyrica and follow up with pcp about other options and regarding MRI imaging studies done at other facility. Patient verbalized understanding. Ambulatory with steady gait. All questions addressed prior to discharge. Advised to follow up with PMD.
== END 2019-04-17 20:20 | disposition home or self-care (01) ==
LOC: MED 17:23
DX: R06.02 Shortness of breath (principal); R00.2 Palpitations; R10.30 Lower abdominal pain, unspecified; J45.909 Unspecified asthma, uncomplicated; E11.9 Type 2 diabetes mellitus without complications; I10 Essential (primary) hypertension; G47.30 Sleep apnea, unspecified; F41.9 Anxiety disorder, unspecified; Z79.899 Other long term (current) drug therapy; Z79.891 Long term (current) use of opiate analgesic; Z79.82 Long term (current) use of aspirin
CPT/HCPCS: 36415; 71045; 80048; 81003; 84484; 85025; 93005; 99284

== ENCOUNTER 2019-05-13 21:35 | Emergency (ER) | payer OTHER ==
[~2019-05-13] VITALS: Ht 154.9 cm; Wt 61.2 kg
[2019-05-13 21:42] VITALS: BP 155/89
--- NOTE | 2019-05-13 21:52 | NUR ---
PT TAKEN TO BED 3
[2019-05-13] MEDS ORDERED: ONDANSETRON 4 MG ODT PO ONE (22:00)
--- NOTE | 2019-05-13 22:02 | NUR ---
59 Y/O FEMALE C/O BODY ACHES, ABD PAIN, AND N/V/D X1 DAY. 2 EPISODES OF DIARRHEA IN LAST HR, VOMITTED X1 TODAY. PT STATES SHE TOOK IMMODIUM WITH NO RELIEF. ABD SOFT, ROUND. BOWEL SOUNDS PRESENT X4 QUAD. 7/10 ACHING PAIN. PT STATES "I JUST CANT GET COMFORTABLE". PT POSITIONED IN BED FOR COMFORT. X1 SIDE RAIL RAISED. BED LOCKED AND IN LOW POSITION. VSS. MEDHX: DM, HTN ALLERGIES: NKA
--- NOTE | 2019-05-13 22:10 | NUR ---
Dr. Kraft examining patient.
[2019-05-13] MEDS ORDERED: KETOROLAC 60 MG/2 ML VIAL IM ONE (22:15)
--- NOTE | 2019-05-13 22:37 | NUR ---
PT STATES DECREASE IN PAIN AFTER MEDICATION. 3/10 ACHING AT THIS TIME. ERMD MADE AWARE
[2019-05-13 22:56] VITALS: BP 155/89
--- NOTE | 2019-05-13 22:56 | NUR ---
Patient discharged with v/s stable. Written and verbal after care instructions given and explained. Patient alert, oriented and verbalized understanding of instructions. Ambulatory with steady gait. All questions addressed prior to discharge. ID band removed. Patient advised to follow up with PMD. Rx of MOTRIN, ZOFRAN, AND IMODIUM given. Patient educated on indication of medication including possible reaction and side effects. Opportunity to ask questions provided and answered.
== END 2019-05-13 22:56 | disposition home or self-care (01) ==
LOC: MED 21:35
DX: R10.13 Epigastric pain (principal); R11.2 Nausea with vomiting, unspecified; R19.7 Diarrhea, unspecified; E11.9 Type 2 diabetes mellitus without complications; I10 Essential (primary) hypertension; J45.909 Unspecified asthma, uncomplicated; Z98.890 Other specified postprocedural states; Z79.82 Long term (current) use of aspirin; Z79.84 Long term (current) use of oral hypoglycemic drugs; Z79.899 Other long term (current) drug therapy
CPT/HCPCS: 81002; 96372; 99283; J1885; Q0162

== ENCOUNTER 2019-06-03 18:10 | Emergency (ER) | payer OTHER ==
[~2019-06-03] VITALS: Ht 154.9 cm; Wt 59.9 kg
[2019-06-03 18:10] VITALS: BP 162/103
--- NOTE | 2019-06-03 18:26 | NUR ---
59 y/o female presenting with c/c of pain in bilateral legs radiating to back and pelvic area x1 yr. per patient the pain got worse today 12/25 sharp. per pt got a lumbar puncture yesterday. pt nka. medical hx of dm, anxiety, htn. rx: xanax, metoprolol, metformin. denies n/v/d. side rail x1. family at bedside.
--- NOTE | 2019-06-03 19:14 | NUR ---
REPORT GIVEN TO VADIM BHARDWAJ
[2019-06-03] MEDS ORDERED: MORPHINE SULFATE 4 MG/ML SYR IVP ONE (19:35)
[2019-06-03] MEDS ORDERED: ONDANSETRON 4 MG/2 ML VIAL IVP ONE (19:35)
[2019-06-03 20:36] LABS: ANION GAP 15.1 (8-16); CARBON DIOXIDE 26.2 mmol/L (21-32); POTASSIUM 3.3 mmol/L (3.5-5.1)
[2019-06-03 20:39] LABS: APPEARANCE,URINE CLEAR (CLEAR); BILIRUBIN,URINE NEGATIVE (NEGATIVE); BLOOD, URINE NEGATIVE (NEGATIVE); COLOR,URINE YELLOW (YELLOW); LEUKOCYTE ESTERASE ,URINE NEGATIVE (NEGATIVE); NITRITE, URINE NEGATIVE (NEGATIVE); UGLUCOSE NEGATIVE (NEGATIVE)
[2019-06-03] MEDS ORDERED: POTASSIUM CHLORIDE 10 MEQ TABER PO ONE (20:50)
[2019-06-03 21:14] VITALS: BP 159/100
--- NOTE | 2019-06-03 21:14 | NUR ---
PT DISCHARGED WITH PAPERWORK. EDUCATED PT REGARDING MEDICATIONS AND D/C DIAGNOSIS. TOLD PT TO FOLLOW UP WITH PCP AND WHEN TO RETURN TO ED. PT AT STABLE CONDITION. ALL QUESTIONS ANSWERED.
== END 2019-06-03 21:13 | disposition home or self-care (01) ==
LOC: MED 18:10
DX: M54.5 Low back pain (principal); J45.909 Unspecified asthma, uncomplicated; I10 Essential (primary) hypertension; F41.9 Anxiety disorder, unspecified; E11.9 Type 2 diabetes mellitus without complications; Z79.899 Other long term (current) drug therapy; Z79.84 Long term (current) use of oral hypoglycemic drugs; Z79.82 Long term (current) use of aspirin
CPT/HCPCS: 36415; 80048; 81003; 96374; 96375; 99283; J2270; J2405

== ENCOUNTER 2019-07-23 17:47 | Inpatient (IN) | payer OTHER ==
[~2019-07-23] VITALS: Ht 157.5 cm; Wt 61.2 kg
[~2019-07-23 17:47] MED LIST changes: -ACET-2214 PO
[2019-07-23 18:04] VITALS: BP 164/92
--- NOTE | 2019-07-23 18:07 | NUR ---
PT TO BED 6 WITH STEADY GAIT
--- NOTE | 2019-07-23 18:11 | NUR ---
VERBAL ORDER FOR EKG
[2019-07-23] MEDS ORDERED: ONDANSETRON 4 MG/2 ML VIAL IVP ONE (18:30)
[2019-07-23] MEDS ORDERED: ASPIRIN 81 MG TAB.CHEW PO ONE (18:30)
[2019-07-23] MEDS ORDERED: NITROGLYCERIN 2% 1 GM PKT TP ONE (18:30)
[2019-07-23] MEDS ORDERED: fentaNYL 0.05 MG/ML VIAL IVP ONE (18:30)
--- NOTE | 2019-07-23 18:39 | NUR ---
XRAY AT BEDSIDE
[2019-07-23 19:03] LABS: BASOPHILS % (AUTO) 0.2 % (0.0-2.0); EOSINOPHILS # (AUTO) 0.1 K/uL (0-0.4); EOSINOPHILS % (AUTO) 1.7 % (0.0-4.0); HEMATOCRIT 38.3 % (36-48); HEMOGLOBIN 12.8 g/dL (12.0-16.0); LYMPHOCYTES # (AUTO) 2.6 K/uL (2.5-16.5); LYMPHOCYTES % (AUTO) 31.6 % (20.5-51.1); MEAN CORPUSCULAR HEMOGLOBIN 30 pg (27-31); MEAN CORPUSCULAR HGB CONC 33 g/dL (33-37); MEAN CORPUSCULAR VOLUME 89.8 fL (80-94); MONOCYTES # (AUTO) 0.5 K/uL (0.8-1.0); MONOCYTES % (AUTO) 6.8 % (1.7-9.3); NEUTROPHILS # (AUTO) 4.8 K/uL (1.8-7.7); NEUTROPHILS % (AUTO) 59.7 % (42.2-75.2); PLATELET COUNT (AUTO) 397 K/uL (140-450); RED BLOOD CELL COUNT(AUTO) 4.27 MIL/uL (4.20-5.40); RED CELL DISTRIBUTION WIDTH 13.6 % (11.6-13.7); WHITE BLOOD COUNT (AUTO) 8.1 K/uL (4.8-10.8)
[2019-07-23 19:17] LABS: ALBUMIN 4.2 g/dL (3.4-5.0); ANION GAP 11.9 (8-16); CARBON DIOXIDE 28.9 mmol/L (21-32); POTASSIUM 3.8 mmol/L (3.5-5.1); TOTAL BILIRUBIN 0.2 mg/dL (0.0-1.0)
--- NOTE | 2019-07-23 19:18 | NUR ---
RECIEVED REPORT FROM BENTON GARCIA. TRANSFER OF CARE AT THIS TIME.
--- NOTE | 2019-07-23 19:20 | NUR ---
REPORT RECIEVED THAT PT IS DIFFICULT IV STICK DUE TO HX OF IV DRUG AND PIV ATTEMPT X 3 BY DAY SHIFT. PO ASPIRIN ADMINISTERED AND NITROGLYCERIN PATCH APPLIED. IVP FENTANYL AND ZOFRAN NON-ADMINISTERED. FENTANYL WASTED BY RADHA RN. DR. ORTEGA MADE AWARE.
--- NOTE | 2019-07-23 19:28 | NUR ---
PIV ESTABLISHED; 24 G IN LEFT FA. FENTANYL REMOVED FROM OMNICELL.
--- NOTE | 2019-07-23 19:35 | NUR ---
MEDICATED WITH 50 MCG IVP FENTANYL AND 4 MG IVP ZOFRAN FOR 5/10 CP THAT COMES AND GOES. WILL REASSESS.
--- NOTE | 2019-07-23 19:50 | NUR ---
PT REPORTS SOME PAIN RELIEF; 4/10 CP THAT COMES AND GOES. PT STATES IS TOLERABLE AT THIS TIME.
--- NOTE | 2019-07-23 20:30 | NUR ---
DR. ORTEGA AT BEDSIDE.
[2019-07-23] MEDS ORDERED: GUAN1TAB6 PO (21:07)
[2019-07-23] MEDS ORDERED: BENA20TA PO (21:09)
--- NOTE | 2019-07-23 21:12 | NUR ---
AMBULATES TO WITH UPRIGHT, STEADY GAIT.
[2019-07-23] MEDS ORDERED: ALPR0.5T2 PO (21:17)
--- NOTE | 2019-07-23 21:19 | NUR ---
PT EATING DINNER BIB FAMILY MEMBER.
[2019-07-23] MEDS ORDERED: ONDANSETRON 4 MG/2 ML VIAL IVP PRN (22:00)
[2019-07-23] MEDS ORDERED: ALPRAZolam 0.5 MG TAB PO PRN (22:00)
[2019-07-23] MEDS ORDERED: ACETAMINOPHEN 325 MG TAB PO PRN (22:00)
[2019-07-23] MEDS ORDERED: DEXTROSE 50% 50 ML SYR IVP PRN (22:00)
[2019-07-23] MEDS ORDERED: INSULIN LISPRO SLIDING SCALE 100 UNITS/ML VIAL SUBQ PRN (22:00)
[2019-07-23] MEDS ORDERED: MORPHINE SULFATE 4 MG/ML SYR IVP PRN (22:00)
[2019-07-23] MEDS ORDERED: HYDROcodone/APAP 5/325 MG 1 TAB TAB PO PRN (22:00)
[2019-07-23] MEDS ORDERED: ALBUTEROL 0.083% 2.5 MG/3 ML NEBU INH PRN (22:00)
[2019-07-23] MEDS ORDERED: ZOLPIDEM 10 MG TAB PO PRN (22:00)
--- NOTE | 2019-07-23 22:30 | NUR ---
SITTING QUIETLY IN BED. AWAKE, ALERT, CALM, COMFORTABLE. VSS. PT DENIES CP/SOB AT THIS TIME.
[2019-07-23 22:40] VITALS: BP 100/58
--- NOTE | 2019-07-23 22:40 | NUR ---
RECEIVED BEDSIDE REPORT FROM ED RN FOR PT'S CONTINUITY OF CARE. PT IS AAOX4, IS ON ROOM AIR, ON CARDIAC TELE, HAS LEFT FA 24G SALINE LOCK. PT MENTIONED FAMILIARITY WITH THE HOSPITAL ENVIRONMENT. SAFETY PRECAUTIONS IN PLACE, CHALINO LIGHT IS WITHIN REACH. WILL MONITOR PT THROUGHOUT SHIFT.
--- NOTE | 2019-07-23 22:40 | NUR ---
Patient will be admitted to care of Dr. Gaming. Admited to tele. Will go to room 105A. Belongings list completed. Report to BENTON Randolph.
[2019-07-23 23:21] LABS: BARBITURATE, URINE NEG. ng/ml (NEG <=200); BENZODIAZEPINE, URINE NEG. ng/mL (NEG <=200); CANNABINOID, URINE NEG. ng/mL (NEG <=50); COCAINE, URINE NEG. ng/mL (NEG <=300); OPIATE, URINE NEG. ng/mL (NEG <=2000); PHENCYCLIDINE SCREEN,URINE NEG. ng/mL (NEG <=25)
[2019-07-24] VITALS: BP 134/77
--- NOTE | 2019-07-24 00:15 | NUR ---
PT REQUESTED FOR SLEEP AID MEDICATION, STATES TAKES MEDICATION EVERY NIGHT FOR SLEEP. ADMINISTERED PRN PO MEDICATION ORDERED. PT TOLERATED IT WELL. VS CHECKED AND CHARTED. PT DENIES ANY PAIN AT THIS TIME. WILL CONTINUE TO MONITOR PT.
--- NOTE | 2019-07-24 02:02 | NUR ---
MADE ROUNDS. PT ASLEEP WITH NO SIGNS OF DISTRESS.
--- NOTE | 2019-07-24 04:00 | NUR ---
VS CHECKED AND CHARTED. PT SLEEPING, NO SIGNS OF DISTRESS OR DISCOMFORT.
[2019-07-24 04:01] VITALS: BP 105/60
--- NOTE | 2019-07-24 05:19 | NUR ---
PT C/O SEVERE THROBBING DENNEY. ADMINISTERED PRN IVP PAIN MEDICATION ORDERED. PT TOLERATED IT WELL. ASSISTED PT TO THE RESTROOM. PT MADE COMFORTABLE, NEEDS MET AT THIS TIME. WILL CONTINUE TO MONITOR PT.
[2019-07-24] MEDS: BLOOD GLUCOSE MONITORING 1 DEV DEV FS SCH ×2 (06:28→11:39)
--- NOTE | 2019-07-24 06:29 | NUR ---
PT IS LYING DOWN ASLEEP WITH NO SIGNS OF DISTRESS. WILL ENDORSE TO AM SHIFT RN FOR PT'S CONTINUITY OF CARE.
[2019-07-24 06:44] LABS: BASOPHILS % (AUTO) 0.5 % (0.0-2.0); EOSINOPHILS # (AUTO) 0.2 K/uL (0-0.4); EOSINOPHILS % (AUTO) 2.1 % (0.0-4.0); HEMATOCRIT 36.4 % (36-48); HEMOGLOBIN 12.2 g/dL (12.0-16.0); LYMPHOCYTES # (AUTO) 3.2 K/uL (2.5-16.5); MEAN CORPUSCULAR HEMOGLOBIN 30 pg (27-31); MEAN CORPUSCULAR HGB CONC 33 g/dL (33-37); MEAN CORPUSCULAR VOLUME 90.3 fL (80-94); MONOCYTES # (AUTO) 0.7 K/uL (0.8-1.0); MONOCYTES % (AUTO) 8.3 % (1.7-9.3); NEUTROPHILS # (AUTO) 4.2 K/uL (1.8-7.7); NEUTROPHILS % (AUTO) 50.1 % (42.2-75.2); PLATELET COUNT (AUTO) 366 K/uL (140-450); RED BLOOD CELL COUNT(AUTO) 4.04 MIL/uL (4.20-5.40); RED CELL DISTRIBUTION WIDTH 13.8 % (11.6-13.7); WHITE BLOOD COUNT (AUTO) 8.3 K/uL (4.8-10.8)
--- NOTE | 2019-07-24 07:10 | NUR ---
RECEIVED BEDSIDE REPORT FROM CYLINDER DIE MACHINE OPERATOR NURSE MALACHI. PT IS AWAKE AND ALERT, NO S/S OF DISTRESS, ON ROOM AIR, SKIN INTACT. IV SITE L FA 24 G SALINE LOCKED. CALL LIGHT IS WITHIN REACH. WILL CONTINUE TO MONITOR.
[2019-07-24 07:44] LABS: ANION GAP 12.6 (8-16); CARBON DIOXIDE 27.7 mmol/L (21-32); CREATININE 0.9 mg/dL (0.6-1.3); MAGNESIUM 1.8 mg/dL (1.8-2.4); PHOSPHORUS 3.4 mg/dL (2.5-4.9); POTASSIUM 3.3 mmol/L (3.5-5.1)
[2019-07-24 08:00] VITALS: BP 98/60
--- NOTE | 2019-07-24 08:35 | NUR ---
AM MEDS ADMINISTERED, PT TOLERATED WELL. HELD THE METOPROLOL BECAUSE BP WAS 98/60 THIS MORNING. PT C/O A HEADACHE, TYLENOL ADMINISTERED. WILL REASSESS HEADACHE IN AN HOUR.
[2019-07-24] MEDS ORDERED: ASPIRIN 81 MG TAB.CHEW PO SCH (09:00)
[2019-07-24] MEDS ORDERED: METOPROLOL 25 MG TAB PO SCH (09:00)
--- NOTE | 2019-07-24 10:22 | NUR ---
PATIENT HAS BEEN SCREENED AND CATEGORIZED LOW NUTRITION RISK. PATIENT WILL BE SEEN WITHIN 7 DAYS OF ADMISSION. MATE[address]
[2019-07-24 12:00] VITALS: BP 101/65
--- NOTE | 2019-07-24 13:15 | NUR ---
DR MUELLER MADE AWARE OF PT'S POTASSIUM 3.3, VERBAL ORDER 40 MEQ PO KDUR X 1 DOSE.
--- NOTE | 2019-07-24 13:29 | NUR ---
PT SEEN BY DR MUELLER. PER DR MUELLER, THE PAIN THAT PT HAS BEEN HAVING IS MUSCULOSKELETAL, AND NOT RELATED TO THE HEART. PT WAS CURRENTLY C/O CHEST PAIN, VS ARE STABLE, NO SOB OR RADIATION TO OTHER PARTS OF BODY.
[2019-07-24] MEDS ORDERED: NAPR-54 PO (13:38)
[2019-07-24] MEDS ORDERED: POTASSIUM CHLORIDE 10 MEQ TABER PO SCH (13:52)
--- NOTE | 2019-07-24 15:27 | NUR ---
PT WAS GIVEN DC INSTRUCTIONS AND SHE VERBALIZED UNDERSTANDING OF THE DC TEACHING. PT MADE AWARE THAT SHE CAN OBTAIN NAPROXEN OVER THE COUNTER, PER DR MUELLER. IV SITE AND WRIST BAND REMOVED. HEART MONITOR REMOVED. PT IS WAITING FOR HER FRIEND TO PICK HER UP. Addendum: 07/24/19 at 1557 by Makenzie Jewell RN PT'S FLU VACCINE IS UP TO DATE: GIVEN IN 04/2019
--- NOTE | 2019-07-24 15:40 | NUR ---
PT HAS DC'D. LEFT IN STABLE CONDITION WITH ALL HER BELONGINGS.
[2019-07-24] MEDS ORDERED: LORATADINE 10 MG TAB PO SCH (21:00)
== END 2019-07-24 15:40 | disposition home or self-care (01) | DRG 203 ==
LOC: MED 17:47 → MTU 22:02
PROVIDERS: ADMIT Hospitalist; ATTEND Hospitalist
DX: R07.89 Other chest pain (principal); E87.1 Hypo-osmolality and hyponatremia; E11.9 Type 2 diabetes mellitus without complications; E78.5 Hyperlipidemia, unspecified; F32.9 Major depressive disorder, single episode, unspecified; F41.9 Anxiety disorder, unspecified; I10 Essential (primary) hypertension; J45.909 Unspecified asthma, uncomplicated; Z79.84 Long term (current) use of oral hypoglycemic drugs; Z79.82 Long term (current) use of aspirin; Z79.899 Other long term (current) drug therapy; Z90.49 Acquired absence of other specified parts of digestive tract
CPT/HCPCS: 36415; 71045; 80048; 80053; 80305; 82948; 83690; 83735; 83880; 84100; 84484; 85025; 87081; 93005; 96374; 96375; 99285; J2270; J2405; J3010; Q0092

== ENCOUNTER 2019-11-12 18:26 | Emergency (ER) | payer OTHER ==
[~2019-11-12] VITALS: Ht 154.9 cm; Wt 61.2 kg
[~2019-11-12 18:26] MED LIST changes: -ALPR0.252 PO; +ALPR0.5T2 PO; -ASPI-1718 PO; +BENA20TA PO; +GUAN1TAB6 PO; +NAPR-54 PO; -ORE25 PO; -PAX20 PO; -PRAV40TA PO; -TRAM50TA1 PO; -VITD1000 PO
[2019-11-12 18:38] VITALS: BP 188/80
[2019-11-12 19:41] LABS: APPEARANCE,URINE CLEAR (CLEAR); BILIRUBIN,URINE NEGATIVE (NEGATIVE); BLOOD, URINE NEGATIVE (NEGATIVE); COLOR,URINE ORANGE (YELLOW); LEUKOCYTE ESTERASE ,URINE NEGATIVE (NEGATIVE); NITRITE, URINE NEGATIVE (NEGATIVE); PH,URINE 5.5 (5.0-9.0); UGLUCOSE NEGATIVE (NEGATIVE)
[2019-11-12 22:50] VITALS: BP 140/87
== END 2019-11-12 22:45 | disposition home or self-care (01) ==
LOC: MED 18:26
DX: R10.9 Unspecified abdominal pain (principal); E11.9 Type 2 diabetes mellitus without complications; F41.9 Anxiety disorder, unspecified; G90.09 Other idiopathic peripheral autonomic neuropathy; I10 Essential (primary) hypertension; Z79.899 Other long term (current) drug therapy
CPT/HCPCS: 74176; 76830; 76856; 81003; 99285; Q0092

== ENCOUNTER 2020-03-10 10:29 | Emergency (ER) | payer OTHER ==
[~2020-03-10] VITALS: Ht 154.9 cm; Wt 59.9 kg
[2020-03-10 10:40] VITALS: BP 100/63
--- NOTE | 2020-03-10 11:00 | NUR ---
PATIENT AMBULATED TO ER BED 11
--- NOTE | 2020-03-10 11:01 | NUR ---
59 Y/O FEMALE C/O CHILLS X2 DAYS AND FEVER, PATIENT DENIES ANY SOB/COUGH/PAIN/N/V/D. RESP EVEN AND UNLABORED. PT IS AFEBRILE AT THIS TIME. AAOX4. VSS. LUNG SOUNDS CLEAR IN BILAT LOBES. SKIN COOL/DRY. PATIENT STATES "I JUST WANT TO MAKE SURE IM OKAY" PMH:DM, HTN NKA
--- NOTE | 2020-03-10 11:05 | NUR ---
COVID SWABBED PERFORMED AT BEDSIDE AND WALKED TO LAB
--- NOTE | 2020-03-10 11:42 | NUR ---
PT UNABLE TO URINATE AT THIS TIME
--- NOTE | 2020-03-10 12:25 | NUR ---
PT UNABLE TO URINATE AT THIS TIME, KATLIN MADE AWARE
--- NOTE | 2020-03-10 14:18 | NUR ---
PATIENT ABLE TO URINATE, DIP PROVIDED TO KATLIN TOMPKINS
[2020-03-10 14:24] LABS: APPEARANCE,URINE CLOUDY (CLEAR); BILIRUBIN,URINE NEGATIVE (NEGATIVE); BLOOD, URINE 3+ (NEGATIVE); COLOR,URINE YELLOW (YELLOW); LEUKOCYTE ESTERASE ,URINE 2+ (NEGATIVE); NITRITE, URINE NEGATIVE (NEGATIVE); UGLUCOSE NEGATIVE (NEGATIVE)
[2020-03-10 14:38] VITALS: BP 122/79
--- NOTE | 2020-03-10 14:38 | NUR ---
Patient discharged with v/s stable. Written and verbal after care instructions given and explained. Patient alert, oriented and verbalized understanding of instructions. Ambulatory with steady gait. All questions addressed prior to discharge. ID band removed. Patient advised to follow up with PMD. Rx of CIPROFLOXACIN given. Patient educated on indication of medication including possible reaction and side effects. Opportunity to ask questions provided and answered.
[2020-03-10 14:42] LABS: RBC,URINE 0-5 /HPF (0-5)
[2020-03-10 14:43] LABS: WBC,URINE 80-100 /HPF (0-5)
== END 2020-03-10 14:38 | disposition home or self-care (01) ==
LOC: MED 10:29
DX: N39.0 Urinary tract infection, site not specified (principal); E11.9 Type 2 diabetes mellitus without complications; I10 Essential (primary) hypertension; Z20.828 Contact with and (suspected) exposure to other viral communicable diseases; Z79.899 Other long term (current) drug therapy; Z90.711 Acquired absence of uterus with remaining cervical stump
CPT/HCPCS: 81001; 87086; 87186; 99283; U0003

== ENCOUNTER 2020-03-20 21:39 | Emergency (ER) | payer OTHER ==
[~2020-03-20] VITALS: Ht 157.5 cm; Wt 59.4 kg
[2020-03-20 21:43] VITALS: BP 148/85
[2020-03-20] MEDS ORDERED: NACL 0.9% 1,000 ML IV ONE (22:53)
[2020-03-20] MEDS ORDERED: ONDANSETRON 4 MG/2 ML VIAL IVP ONE (22:55)
[2020-03-20] MEDS ORDERED: MORPHINE SULFATE 4 MG/ML SYR IVP ONE (22:55)
[2020-03-20 23:29] LABS: BASOPHILS # (AUTO) 0.1 K/uL (0.00-0.22); BASOPHILS % (AUTO) 0.6 % (0.0-2.0); EOSINOPHILS # (AUTO) 0.1 K/uL (0-0.4); EOSINOPHILS % (AUTO) 1.4 % (0.0-4.0); HEMATOCRIT 29.6 % (36-48); HEMOGLOBIN 10.1 g/dL (12.0-16.0); LYMPHOCYTES # (AUTO) 2.6 K/uL (2.5-16.5); LYMPHOCYTES % (AUTO) 31.5 % (20.5-51.1); MEAN CORPUSCULAR HEMOGLOBIN 31 pg (27-31); MEAN CORPUSCULAR HGB CONC 34 g/dL (33-37); MONOCYTES # (AUTO) 0.9 K/uL (0.8-1.0); MONOCYTES % (AUTO) 11.1 % (1.7-9.3); NEUTROPHILS # (AUTO) 4.6 K/uL (1.8-7.7); NEUTROPHILS % (AUTO) 55.4 % (42.2-75.2); PLATELET COUNT (AUTO) 649 K/uL (140-450); RED BLOOD CELL COUNT(AUTO) 3.22 MIL/uL (4.20-5.40); RED CELL DISTRIBUTION WIDTH 14.2 % (11.6-13.7); WHITE BLOOD COUNT (AUTO) 8.3 K/uL (4.8-10.8)
[2020-03-20 23:30] LABS: BILIRUBIN,URINE NEGATIVE (NEGATIVE); BLOOD, URINE NEGATIVE (NEGATIVE); COLOR,URINE YELLOW (YELLOW); LEUKOCYTE ESTERASE ,URINE 1+ (NEGATIVE); NITRITE, URINE NEGATIVE (NEGATIVE); PH,URINE 5.5 (5.0-9.0); UGLUCOSE NEGATIVE (NEGATIVE)
[2020-03-20] MEDS ORDERED: KETOROLAC 30 MG/ML VIAL IVP ONE (23:40)
[2020-03-20 23:42] LABS: APPEARANCE,URINE SLIGHTLY HAZY (CLEAR)
[2020-03-20 23:43] LABS: RBC,URINE 0-5 /HPF (0-5)
[2020-03-20 23:44] LABS: WBC,URINE 16-25 (MOD) /HPF (0-5)
[2020-03-20 23:48] LABS: ALBUMIN 3.4 g/dL (3.4-5.0); ANION GAP 11.9 (8-16); CARBON DIOXIDE 25.1 mmol/L (21-32); CREATININE 1.6 mg/dL (0.6-1.3); TOTAL BILIRUBIN 0.2 mg/dL (0.0-1.0)
== END 2020-03-21 01:14 | disposition home or self-care (01) ==
LOC: MED 21:39
DX: R10.2 Pelvic and perineal pain (principal); E86.0 Dehydration; G89.18 Other acute postprocedural pain; E11.9 Type 2 diabetes mellitus without complications; I10 Essential (primary) hypertension
CPT/HCPCS: 36415; 80053; 81001; 83690; 85025; 87086; 96361; 96374; 96375; 99284; J1885; J2270; J2405; J7030

== ENCOUNTER 2020-04-09 13:51 | Emergency (ER) | payer OTHER ==
[~2020-04-09] VITALS: Ht 157.5 cm; Wt 59.5 kg
[2020-04-09 13:57] VITALS: BP 115/73
--- NOTE | 2020-04-09 14:07 | NUR ---
TAKEN TO BED 11
--- NOTE | 2020-04-09 14:11 | NUR ---
60 YO FEMALE PATIENT PRESENTS TO ED WITH LOWER ABD PAIN S/P HYSTERECTOMY X2M. PT STATES LAST BM WAS LAST NIGHT. DENIES ANY DYSURIA. DENIES N/V/D; SKIN IS PINK/WARM/DRY; AAOX4 WITH EVEN AND STEADY GAIT; LUNGS CLEAR BL; HR EVEN AND REGULAR; PT DENIES ANY FEVER, CP, SOB, OR COUGH AT THIS TIME; PATIENT STATES PAIN OF 8/10 AT THIS TIME; VSS; PATIENT POSITIONED FOR COMFORT; HOB ELEVATED; BEDRAILS UP X2; BED DOWN. ER MD MADE AWARE OF PT STATUS. MED HX: DM, HTN,HYSTERECTOMY
[2020-04-09 15:27] VITALS: BP 120/83
== END 2020-04-09 15:28 | disposition home or self-care (01) ==
LOC: MED 13:51
DX: N39.0 Urinary tract infection, site not specified (principal); I95.9 Hypotension, unspecified; E11.9 Type 2 diabetes mellitus without complications; I10 Essential (primary) hypertension; Z79.899 Other long term (current) drug therapy; Z94.5 Skin transplant status; Z90.711 Acquired absence of uterus with remaining cervical stump
CPT/HCPCS: 81002; 87086; 99283

== ENCOUNTER 2020-04-14 23:13 | Emergency (ER) | payer OTHER ==
[~2020-04-14] VITALS: Ht 154.9 cm; Wt 59.4 kg
--- NOTE | 2020-04-14 23:13 | NUR ---
biba to bed 12
--- NOTE | 2020-04-14 23:15 | NUR ---
60 YO F BIBA FOR C/C OF CHRONIC 01/25 LOWER BACK AND BILATERAL LEG PAIN. PT DENIES INJURY OR TRAUMA. PT STATES "I JUST FEEL LIKE THERE IS SOMETHING WRONG WITH ME." PT STATES SHE TOOK AN UNKNOWN MEDICATION FOR PAIN AT 1999 WITHOUT RELIEF OF SYMPTOMS. PT DENIES FEVER, COUGH, SOB, AND TRAVEL. DENIES URINARY SYMPTOMS. BED LOCKED AND IN LOWEST POSITION. SIDE RAILS X1. MED HX: DM2, HTN, HYSTERECTOMY 02/04, RX: METFORMIN, METOPROLOL, BENAZAPRIL NKA
[2020-04-14 23:21] VITALS: BP 128/90
--- NOTE | 2020-04-14 23:50 | NUR ---
PT WHEELCHAIR ASSISTED TO RR BY EMT
--- NOTE | 2020-04-14 23:54 | NUR ---
PT WHEELCHAIR ASSISTED BACK TO BED BY EMT
[2020-04-15 01:19] LABS: APPEARANCE,URINE CLEAR (CLEAR); BILIRUBIN,URINE NEGATIVE (NEGATIVE); BLOOD, URINE NEGATIVE (NEGATIVE); COLOR,URINE YELLOW (YELLOW); LEUKOCYTE ESTERASE ,URINE 1+ (NEGATIVE); NITRITE, URINE POSITIVE (NEGATIVE); PH,URINE 6.5 (5.0-9.0); UGLUCOSE NEGATIVE (NEGATIVE)
--- NOTE | 2020-04-15 01:26 | NUR ---
ERMD AT BEDSIDE EVALUATING PT
[2020-04-15] MEDS ORDERED: ALUMINUM HYD/MAG/SIMETHICONE 30 ML UDC PO ONE (01:30)
[2020-04-15] MEDS ORDERED: ONDANSETRON 4 MG ODT PO ONE (01:30)
[2020-04-15] MEDS ORDERED: ACETAMINOPHEN EXTRA STRENGTH 500 MG TAB PO ONE (01:30)
[2020-04-15] MEDS ORDERED: CYCLOBENZAPRINE 10 MG TAB PO ONE (01:30)
[2020-04-15 01:31] LABS: RBC,URINE 0-5 /HPF (0-5)
[2020-04-15 01:33] LABS: BARBITURATE, URINE NEGATIVE ng/ml (NEG <=200); BENZODIAZEPINE, URINE NEGATIVE ng/mL (NEG <=200); CANNABINOID, URINE NEGATIVE ng/mL (NEG <=50); COCAINE, URINE NEGATIVE ng/mL (NEG <=300); OPIATE, URINE NEGATIVE ng/mL (NEG <=2000); PHENCYCLIDINE SCREEN,URINE NEGATIVE ng/mL (NEG <=25)
--- NOTE | 2020-04-15 01:40 | NUR ---
LAB AT BEDSIDE
--- NOTE | 2020-04-15 01:40 | NUR ---
EKG BEING PERFORMED AT BEDSIDE
--- NOTE | 2020-04-15 01:40 | NUR ---
EKG PERFORMED AT BEDSIDE. EKG READS SINUS TACHYCARDIA @ 116
[2020-04-15 02:05] LABS: HEMATOCRIT 35.5 % (36-48); HEMOGLOBIN 11.9 g/dL (12.0-16.0); MEAN CORPUSCULAR HEMOGLOBIN 31 pg (27-31); MEAN CORPUSCULAR HGB CONC 34 g/dL (33-37); MEAN CORPUSCULAR VOLUME 91.1 fL (80-94); PLATELET COUNT (AUTO) 495 K/uL (140-450); RED CELL DISTRIBUTION WIDTH 14.9 % (11.6-13.7); WHITE BLOOD COUNT (AUTO) 11.5 K/uL (4.8-10.8)
[2020-04-15 02:08] LABS: ANION GAP 15.4 (8-16); CREATININE 1.2 mg/dL (0.6-1.3); POTASSIUM 3.4 mmol/L (3.5-5.1); TOTAL BILIRUBIN 0.5 mg/dL (0.0-1.0)
[2020-04-15 02:18] LABS: LYMPHOCYTES % (MANUAL) 11 % (20-46); MONOCYTES % (MANUAL) 5 % (5-12)
--- NOTE | 2020-04-15 02:47 | NUR ---
PAIN 8/, PT STATED SHE'S OK AT THE MOMENT, NO PAIN MANAGEMENT INTERVENTIONS NEEDED AT THE TIME.
--- NOTE | 2020-04-15 03:14 | NUR ---
AMBULATED TO WITH STEADY GAIT.
[2020-04-15] MEDS ORDERED: MORPHINE SULFATE 4 MG/ML SYR IM ONE (03:15)
--- NOTE | 2020-04-15 03:16 | NUR ---
PT BACK IN BED. ON MONITOR, BED LOCKED IN LOWEST POSITION, SIDE RAILS X1.
--- NOTE | 2020-04-15 03:45 | NUR ---
PT CALLED FOR A RIDE. WILL EXTENSION DIVISION DIRECTOR SOON.
[2020-04-15 04:09] VITALS: BP 118/72
--- NOTE | 2020-04-15 04:09 | NUR ---
Patient discharged with v/s stable. Written and verbal after care instructions given and explained. Patient alert, oriented and verbalized understanding of instructions. Ambulatory with steady gait. All questions addressed prior to discharge. ID band removed. Patient advised to follow up with PMD. Rx of FLEXERIL, MAALOX, PEPCID, VOLTAREN, AND MACRIBID given. Patient educated on indication of medication including possible reaction and side effects. Opportunity to ask questions provided and answered.
== END 2020-04-15 04:09 | disposition home or self-care (01) ==
LOC: MED 23:13
DX: N39.0 Urinary tract infection, site not specified (principal); M54.42 Lumbago with sciatica, left side; M54.41 Lumbago with sciatica, right side; R10.13 Epigastric pain; Q40.1 Congenital hiatus hernia; E11.9 Type 2 diabetes mellitus without complications; I10 Essential (primary) hypertension; Z79.899 Other long term (current) drug therapy
CPT/HCPCS: 36415; 80053; 80305; 81001; 83605; 83690; 84484; 85025; 87086; 93005; 96372; 99284; J2270; Q0162

== ENCOUNTER 2021-05-16 15:12 | Observation (INO) | payer OTHER ==
[~2021-05-16] VITALS: Ht 154.9 cm; Wt 61.7 kg
[2021-05-16 15:14] VITALS: BP 188/94
--- NOTE | 2021-05-16 15:33 | NUR ---
PT RETURNED TO LOBBY AT THIS TIME
--- NOTE | 2021-05-16 16:22 | NUR ---
PT AMBLUATED TO CHAIR A AT THIS TIME
[2021-05-16] MEDS ORDERED: ACETAMINOPHEN 325 MG TAB PO ONE (16:40)
[2021-05-16] MEDS ORDERED: ASPIRIN 81 MG TAB.CHEW PO ONE (16:40)
[2021-05-16 16:58] LABS: BASOPHILS % (AUTO) 0.5 % (0.0-2.0); EOSINOPHILS # (AUTO) 0.2 K/uL (0-0.4); EOSINOPHILS % (AUTO) 1.8 % (0.0-4.0); HEMATOCRIT 38.3 % (36-48); LYMPHOCYTES # (AUTO) 2.4 K/uL (2.5-16.5); LYMPHOCYTES % (AUTO) 27.1 % (20.5-51.1); MEAN CORPUSCULAR HEMOGLOBIN 31 pg (27-31); MEAN CORPUSCULAR HGB CONC 34 g/dL (33-37); MEAN CORPUSCULAR VOLUME 89.8 fL (80-94); MONOCYTES # (AUTO) 0.6 K/uL (0.8-1.0); MONOCYTES % (AUTO) 6.4 % (1.7-9.3); NEUTROPHILS # (AUTO) 5.6 K/uL (1.8-7.7); NEUTROPHILS % (AUTO) 64.2 % (42.2-75.2); PLATELET COUNT (AUTO) 391 K/uL (140-450); RED BLOOD CELL COUNT(AUTO) 4.26 MIL/uL (4.20-5.40); RED CELL DISTRIBUTION WIDTH 13.6 % (11.6-13.7); WHITE BLOOD COUNT (AUTO) 8.7 K/uL (4.8-10.8)
--- NOTE | 2021-05-16 17:15 | NUR ---
61 Y/O F BIB FAMILY/FRIEND FROM HOME, C/O CHEST PAIN RADIATES TO L ARM. DENIES N/V/D, SORE THROAT, COUGH, OR FEVERS. DENIES ANYONE SICK IN THE HOUSEHOLD. SKIN IS PINK/WARM/DRY; AAOX4 WITH EVEN AND STEADY GAIT; LUNGS CLEAR BL; HR EVEN AND TACHY; NO PITTING EDEMA, CAP REFILL <3. PMH: HTN, DM2, CHRONIC PAIN, PELVIC NERVE DAMAGE NKA MED: IBUPROFEN 800MG, LORAZEPAM (2 HOUR PRIOR TO ARRIVAL)
[2021-05-16 17:21] LABS: ALBUMIN 4.4 g/dL (3.4-5.0); ANION GAP 17.8 (8-16); CARBON DIOXIDE 25.1 mmol/L (21-32); CREATININE 1.2 mg/dL (0.6-1.3); POTASSIUM 3.9 mmol/L (3.5-5.1); TOTAL BILIRUBIN 0.2 mg/dL (0.0-1.0)
--- NOTE | 2021-05-16 17:39 | NUR ---
PT TAKEN TO XRAY VIA W/C
[2021-05-16] MEDS ORDERED: MORPHINE SULFATE 4 MG/ML SYR IVP PRN (18:20)
[2021-05-16] MEDS ORDERED: POTASSIUM CHLORIDE 10 MEQ TABER PO PRN (18:20)
[2021-05-16] MEDS ORDERED: HYDROcodone/APAP 5/325 MG 1 TAB TAB PO PRN (18:20)
[2021-05-16] MEDS ORDERED: ONDANSETRON 4 MG/2 ML VIAL IVP PRN (18:20)
[2021-05-16] MEDS ORDERED: MAGNESIUM OXIDE 400 MG TAB PO PRN (18:20)
[2021-05-16] MEDS ORDERED: IBUP-2213 PO (18:34)
[2021-05-16 18:45] LABS: ANION GAP 15.5 (8-16); CARBON DIOXIDE 25.5 mmol/L (21-32); CREATININE 1.2 mg/dL (0.6-1.3)
--- NOTE | 2021-05-16 20:30 | NUR ---
PT AMBULATED TO BATHROOM. STEADY GAIT.
--- NOTE | 2021-05-16 22:00 | NUR ---
PT REQUESTED SHE WOULD LIKE TO BE UNHOOKED SO SHE CAN USE RESTROOM FREELY
[2021-05-16] MEDS: ACETAMINOPHEN 325 MG TAB PO PRN (22:04)
[2021-05-16] MEDS ORDERED: ZOLPIDEM 10 MG TAB PO ONE (22:30)
--- NOTE | 2021-05-17 | NUR ---
PT FINALLY HAS FELL SOUND ASLEEP
--- NOTE | 2021-05-17 02:00 | NUR ---
PT SLEEPING QUIETLY IN BED.
--- NOTE | 2021-05-17 04:06 | NUR ---
PATIENT AMBULATED TO BATHROOM. RETURNED TO BED AND PUT CALL LIGHT W/IN REACH
[2021-05-17 06:59] LABS: ANION GAP 14.3 (8-16); CARBON DIOXIDE 26.5 mmol/L (21-32); CREATININE 0.9 mg/dL (0.6-1.3); POTASSIUM 3.8 mmol/L (3.5-5.1)
[2021-05-17] MEDS: ACETAMINOPHEN 325 MG TAB PO PRN ×2 (07:07→16:30)
--- NOTE | 2021-05-17 07:10 | NUR ---
GOT REPORT FROM KUSUM MCKINNEY.
[2021-05-17 08:00] VITALS: BP 131/80
--- NOTE | 2021-05-17 08:20 | NUR ---
GAVE REPORT TO ALISON BHARDWAJ. PATIENT IS GOING TO ROOM 104A.
--- NOTE | 2021-05-17 08:35 | NUR ---
PATIENT ARRIVE TO UNITE VIA GURNEY. NO ACUTE DISTRESS NOTED. PATIENT AWAKE AND ALERT. VS STABLE. NO ABNORMAL HEART SOUNDS HEARD. LUNGS SOUND CLEAR. PATIENT DENIES SOB OR CHEST PAIN. BOWEL SOUNDS HEARD IN ALL FOUR QUADRANTS. SKIN IS DRY, CLEAN AND INTACT. PATIENT ABLE TO AMBULATE TO BATHROOM. PATIENT STATE HAVING HX OF HTN, DM, AND CHRONIC GENERALIZED BODY PAIN. EDUCATED PATIENT TO ROOM ENVIRONMENT. PATIENT VERBALIZE UNDERSTANDING. CALL LIGHT WITHIN REACH. ALL SAFETY MEASURES IN PLACE.
--- NOTE | 2021-05-17 10:04 | NUR ---
PATIENT HAS BEEN SCREENED AND CATEGORIZED LOW NUTRITION RISK. PATIENT WILL BE SEEN WITHIN 7 DAYS OF ADMISSION. 05/23/[address]
--- NOTE | 2021-05-17 10:12 | NUR ---
PATIENT AWAKE AND ALERT. NO ACUTE DISTRESS NOTED. PATIENT STATE FEELING LEG PAIN BUT DENIES CHEST PAIN AT THIS TIME. CALL LIGHT WITHIN REACH. ALL SAFETY MEASURES IN PLACE. WILL CONTINUE TO MONITOR.
[2021-05-17] MEDS ORDERED: REGADENOSON 0.4 MG/5 ML SYR IV ONE (10:15)
[2021-05-17 12:00] VITALS: BP 137/88
--- NOTE | 2021-05-17 12:14 | NUR ---
PATIENT AWAKE AND ALERT. NO ACUTE DISTRESS NOTED. DENIES CHEST PAIN AT THIS TIME. DOMESTIC PARTNER AT BEDSIDE. CALL LIGHT WITHIN REACH. ALL SAFETY MEASURES IN PLACE. WILL CONTINUE TO MONITOR
--- NOTE | 2021-05-17 13:28 | NUR ---
PATIENT TAKEN FOR STRESS TEST.
[2021-05-17] MEDS ORDERED: DEXTROSE 50% 50 ML SYR IVP PRN ×2 (14:40)
[2021-05-17] MEDS ORDERED: INSULIN LISPRO SLIDING SCALE 100 UNITS/ML VIAL SUBQ PRN ×2 (14:40)
--- NOTE | 2021-05-17 15:49 | NUR ---
PATIENT AWAKE AND ALERT. NO ACUTE DISTRESS NOTED.CALL LIGHT WITHIN REACH. ALL SAFETY MEASURES IN PLACE. WILL CONTINUE TO MONITOR.
[2021-05-17] MEDS ORDERED: ASPI-1822 PO (15:53)
[2021-05-17] MEDS ORDERED: BENAZEPRIL 20 MG TAB PO SCH (15:55)
[2021-05-17 16:00] VITALS: BP 139/96
[2021-05-17] MEDS ORDERED: BLOOD GLUCOSE MONITORING 1 DEV DEV FS SCH ×2 (16:30)
--- NOTE | 2021-05-17 17:01 | NUR ---
PATIENT OK TO BE DISCHARGED BY DR. ZAVALA AND DR. REESE. PATIENT AWAKE AND ALERT VS STABLE. NO ACUTE DISTRESS NOTED. PATIENT DISCHARGE INFORMATION GIVEN. PATIENT VERBALIZE UNDERSTANDING. WRISTBAND AND IV REMOVED. IV CATHETER INTACT. PATIENT TOOK ALL PERSONAL BELONGINGS. PATIENT WALKED TO FRONT LOBBY WITH FAMILY MEMBER.
[2021-05-17] MEDS ORDERED: METOPROLOL 50 MG TAB PO SCH (21:00)
[2021-05-17] MEDS ORDERED: ZOLPIDEM 10 MG TAB PO SCH (21:00)
[2021-05-18] MEDS ORDERED: ASPIRIN 81 MG TAB.CHEW PO SCH (09:00)
--- NOTE | 2021-05-19 13:00 | NUR ---
DC PLANNING SW CALLED PATIENT'S PCP OFFICE AT TO SCHEDULED A FOLLOW UP APPOINTMENT FOR PATIENT AFTER HER DC FROM [facility]. SLOAN SPOKE TO [facility] WHO PROVIDED A FOLLOW UP APPOINTMENT FOR PATIENT ON 05/20/2021 AT 09:00AM [address] MD. [address]Z [address] [place] [address], [id number] PER [facility] THAT IS THE ONLY APPOINTMENT AVAILABLE FOR PATIENT AT THESE TIME DUE TO THE HOLIDAYS. THEREFORE, THIS PASSENGER TRAIN BRAKER SCHEDULED APPT AND ENDED THE CALL. SLOAN CALLED PATIENT AT TO INFORM PATIENT OF HER SCHEDULED APPOINTMENT BY THERE PASSENGER TRAIN BRAKER WITH PCP WITHIN 7 DAYS OF HER DISCHARGE FROM [facility]. SW PROVIDED PATIENT WITH ALL INFORMATION TIME, DATE AND ADDRESS FOR HER FOLLOW UP APPOINTMENT. PATIENT AGREED TO ATTEND TO HER SCHEDULED APPOINTMENT AND THANK THESE PASSENGER TRAIN BRAKER FOR THE CALL.
== END 2021-05-17 17:10 | disposition home or self-care (01) ==
LOC: MED 15:12 → MTU 18:21
PROVIDERS: ADMIT Hospitalist; ATTEND Hospitalist
DX: R07.89 Other chest pain (principal); E11.65 Type 2 diabetes mellitus with hyperglycemia; I12.9 Hypertensive chronic kidney disease with stage 1 through stage 4 chronic kidney disease, or unspecified chronic kidney disease; E11.22 Type 2 diabetes mellitus with diabetic chronic kidney disease; N18.2 Chronic kidney disease, stage 2 (mild); E11.40 Type 2 diabetes mellitus with diabetic neuropathy, unspecified; G89.29 Other chronic pain; M54.9 Dorsalgia, unspecified; M54.10 Radiculopathy, site unspecified; G47.00 Insomnia, unspecified; Z79.82 Long term (current) use of aspirin; Z79.899 Other long term (current) drug therapy; Z90.710 Acquired absence of both cervix and uterus; Z87.891 Personal history of nicotine dependence
CPT/HCPCS: 36415; 71045; 80048; 80053; 83880; 84484; 85025; 87081; 93005; 96372; 99285; A9500; A9502; G0378; J1644; J2785

== ENCOUNTER 2021-07-04 17:10 | Emergency (ER) | payer OTHER ==
[~2021-07-04] VITALS: Ht 154.9 cm; Wt 61.2 kg
[~2021-07-04 17:10] MED LIST changes: -ALPR0.5T2 PO; +ASPI-1822 PO; -GUAN1TAB6 PO; +IBUP-2213 PO; -LORA10TA19 PO; -NAPR-54 PO
[2021-07-04 17:59] VITALS: BP 158/93
[2021-07-04] MEDS ORDERED: LORazepam 1 MG TAB PO ONE (21:00)
[2021-07-04 21:52] VITALS: BP 170/140
[2021-07-04 21:59] LABS: BASOPHILS # (AUTO) 0.2 K/uL (0.00-0.22); BASOPHILS % (AUTO) 2.1 % (0.0-2.0); EOSINOPHILS # (AUTO) 0.1 K/uL (0-0.4); EOSINOPHILS % (AUTO) 1.3 % (0.0-4.0); HEMATOCRIT 37.7 % (36-48); HEMOGLOBIN 12.7 g/dL (12.0-16.0); LYMPHOCYTES # (AUTO) 2.4 K/uL (2.5-16.5); MEAN CORPUSCULAR HEMOGLOBIN 31 pg (27-31); MEAN CORPUSCULAR HGB CONC 34 g/dL (33-37); MONOCYTES # (AUTO) 0.6 K/uL (0.8-1.0); MONOCYTES % (AUTO) 6.6 % (1.7-9.3); NEUTROPHILS # (AUTO) 5.6 K/uL (1.8-7.7); PLATELET COUNT (AUTO) 440 K/uL (140-450); RED CELL DISTRIBUTION WIDTH 14.4 % (11.6-13.7); WHITE BLOOD COUNT (AUTO) 8.9 K/uL (4.8-10.8)
[2021-07-04 22:35] LABS: ALBUMIN 4.4 g/dL (3.4-5.0); ANION GAP 16.3 (8-16); CARBON DIOXIDE 25.6 mmol/L (21-32); CREATININE 1.1 mg/dL (0.6-1.3); POTASSIUM 3.9 mmol/L (3.5-5.1); TOTAL BILIRUBIN 0.3 mg/dL (0.0-1.0)
[2021-07-04] MEDS ORDERED: LORA-476 PO (22:59)
[2021-07-05] MEDS ORDERED: LORA-476 PO (00:19)
== END 2021-07-05 00:13 | disposition home or self-care (01) ==
LOC: MED 17:10
DX: R07.89 Other chest pain (principal); E11.9 Type 2 diabetes mellitus without complications; I10 Essential (primary) hypertension; F41.9 Anxiety disorder, unspecified; Z79.899 Other long term (current) drug therapy; Z79.84 Long term (current) use of oral hypoglycemic drugs; Z79.82 Long term (current) use of aspirin
CPT/HCPCS: 36415; 71045; 80053; 84484; 85025; 93005; 99285

== ENCOUNTER 2021-07-18 15:46 | Emergency (ER) | payer OTHER ==
[~2021-07-18] VITALS: Ht 154.9 cm; Wt 60.3 kg
[~2021-07-18 15:46] MED LIST changes: +LORA-476 PO
[2021-07-18 15:59] VITALS: BP 151/90
[2021-07-18] MEDS ORDERED: NACL 0.9% 1,000 ML IV ONE (16:15)
--- NOTE | 2021-07-18 16:19 | NUR ---
61 Y/O FEMALE C/O NUMBNESS TO LEFT ARM AND LEFT FACE AND BODY PAIN 10/ X3DAYS. DENIES FEVER/CHILLS. DENIES N/V. PMH: HTN, DM, HLD, ANXIETY NKA
--- NOTE | 2021-07-18 16:42 | NUR ---
CT CONSENT SIGNED AND PLACED INTO PATIENT CHART
[2021-07-18 16:49] LABS: BASOPHILS # (AUTO) 0.1 K/uL (0.00-0.22); EOSINOPHILS # (AUTO) 0.1 K/uL (0-0.4); EOSINOPHILS % (AUTO) 1.7 % (0.0-4.0); HEMATOCRIT 36.3 % (36-48); HEMOGLOBIN 12.6 g/dL (12.0-16.0); LYMPHOCYTES # (AUTO) 2.3 K/uL (2.5-16.5); LYMPHOCYTES % (AUTO) 27.7 % (20.5-51.1); MEAN CORPUSCULAR HEMOGLOBIN 32 pg (27-31); MEAN CORPUSCULAR HGB CONC 35 g/dL (33-37); MEAN CORPUSCULAR VOLUME 91.1 fL (80-94); MONOCYTES # (AUTO) 0.7 K/uL (0.8-1.0); MONOCYTES % (AUTO) 7.9 % (1.7-9.3); NEUTROPHILS # (AUTO) 5.2 K/uL (1.8-7.7); NEUTROPHILS % (AUTO) 61.7 % (42.2-75.2); PLATELET COUNT (AUTO) 409 K/uL (140-450); RED BLOOD CELL COUNT(AUTO) 3.99 MIL/uL (4.20-5.40); RED CELL DISTRIBUTION WIDTH 14.4 % (11.6-13.7); WHITE BLOOD COUNT (AUTO) 8.4 K/uL (4.8-10.8)
[2021-07-18 17:22] LABS: ALBUMIN 4.2 g/dL (3.4-5.0); ANION GAP 19.6 (8-16); CARBON DIOXIDE 21.6 mmol/L (21-32); CREATININE 1.1 mg/dL (0.6-1.3); POTASSIUM 3.2 mmol/L (3.5-5.1); TOTAL BILIRUBIN 0.2 mg/dL (0.0-1.0)
--- NOTE | 2021-07-18 19:50 | NUR ---
CT REPORTED THAT LEFT AC IV BLEW WHILE ADMINISTERING IV CONTRAST. NO BRUISING, MINOR SWELLING, PT IS NOT COMPLAINING OF PAIN. IV REMOVED AND ICE PACK PLACED FOR SWELLING.
[2021-07-18] MEDS ORDERED: POTASSIUM CHLORIDE 10 MEQ TABER PO ONE (21:25)
[2021-07-18] MEDS ORDERED: IBUPROFEN 600 MG TAB PO ONE (21:25)
[2021-07-18] MEDS ORDERED: ATI.5 PO (21:28)
[2021-07-18] MEDS ORDERED: NAPR-54 PO (21:28)
--- NOTE | 2021-07-18 22:25 | NUR ---
ALL RESULTS BACK AND NOTED BY ERMD AND FOR D/C
[2021-07-18 22:45] VITALS: BP 128/88
--- NOTE | 2021-07-18 22:45 | NUR ---
Patient discharged with v/s stable. Written and verbal after care instructions given and explained. Patient alert, oriented and verbalized understanding of instructions. Ambulatory with steady gait. All questions addressed prior to discharge. ID band removed. Patient advised to follow up with PMD. Rx of ATIVAN,NAPROSYN, given. Patient educated on indication of medication including possible reaction and side effects. Opportunity to ask questions provided and answered.
== END 2021-07-18 22:45 | disposition home or self-care (01) ==
LOC: MED 15:46
DX: E87.6 Hypokalemia (principal); M79.10 Myalgia, unspecified site; R20.2 Paresthesia of skin; E11.9 Type 2 diabetes mellitus without complications; I10 Essential (primary) hypertension; Z90.49 Acquired absence of other specified parts of digestive tract; Z79.899 Other long term (current) drug therapy; Z79.84 Long term (current) use of oral hypoglycemic drugs; Z79.82 Long term (current) use of aspirin; Z90.710 Acquired absence of both cervix and uterus
CPT/HCPCS: 36415; 71045; 71275; 80053; 83690; 84484; 85025; 93005; 96360; 96361; 99285; Q9967; J7030

== ENCOUNTER 2021-10-06 15:52 | Emergency (ER) | payer OTHER ==
[~2021-10-06] VITALS: Ht 154.9 cm; Wt 61.2 kg
[~2021-10-06 15:52] MED LIST changes: +ATI.5 PO; +NAPR-54 PO
[2021-10-06 15:58] VITALS: BP 181/90
--- NOTE | 2021-10-06 16:45 | NUR ---
PT AMBULATED TO ER BED 9 WITH A STEADY GAIT.
--- NOTE | 2021-10-06 16:45 | NUR ---
PT STATES SHE IS UNABLE TO PROVIDE UA SAMPLE AT THIS TIME.
[2021-10-06] MEDS ORDERED: KETOROLAC 30 MG/ML VIAL IVP ONE (17:10)
[2021-10-06] MEDS ORDERED: NACL 0.9% 1,000 ML IV ONE (17:10)
--- NOTE | 2021-10-06 17:30 | NUR ---
IV ESTABLISHED TO LEFT AC 18G, GOOD BLOOD RETURN, COLLECTED LABS GAVE TO SOLE CUTTER AT PT BEDSIDE.
--- NOTE | 2021-10-06 17:49 | NUR ---
IV INFILTRATED, D/C WITH CLEAN TECHNIQUE, GAUZE APPLIED WITH PRESSURE FOR [address] ERMD MADE AWARE. [address] CHANGED TO NON-CONTRAST. PT AWARE.
--- NOTE | 2021-10-06 17:52 | NUR ---
PT TAKEN TO CT VIA W/C.
[2021-10-06 17:56] LABS: BASOPHILS # (AUTO) 0.1 K/uL (0.00-0.22); BASOPHILS % (AUTO) 0.8 % (0.0-2.0); EOSINOPHILS # (AUTO) 0.2 K/uL (0-0.4); HEMATOCRIT 36.5 % (36-48); HEMOGLOBIN 12.2 g/dL (12.0-16.0); LYMPHOCYTES # (AUTO) 2.6 K/uL (2.5-16.5); LYMPHOCYTES % (AUTO) 31.8 % (20.5-51.1); MEAN CORPUSCULAR HEMOGLOBIN 31 pg (27-31); MEAN CORPUSCULAR HGB CONC 33 g/dL (33-37); MEAN CORPUSCULAR VOLUME 92.4 fL (80-94); MONOCYTES # (AUTO) 0.6 K/uL (0.8-1.0); MONOCYTES % (AUTO) 7.6 % (1.7-9.3); NEUTROPHILS # (AUTO) 4.7 K/uL (1.8-7.7); NEUTROPHILS % (AUTO) 56.8 % (42.2-75.2); PLATELET COUNT (AUTO) 505 K/uL (140-450); RED BLOOD CELL COUNT(AUTO) 3.95 MIL/uL (4.20-5.40); RED CELL DISTRIBUTION WIDTH 13.7 % (11.6-13.7); WHITE BLOOD COUNT (AUTO) 8.3 K/uL (4.8-10.8)
--- NOTE | 2021-10-06 18:05 | NUR ---
PT AMBULATED TO ER BED [address]
[2021-10-06 18:30] LABS: ANION GAP 11.9 (8-16); CARBON DIOXIDE 27.6 mmol/L (21-32); POTASSIUM 4.5 mmol/L (3.5-5.1)
[2021-10-06 18:31] LABS: TOTAL BILIRUBIN 0.6 mg/dL (0.0-1.0)
[2021-10-06 18:32] LABS: ALBUMIN 4.2 g/dL (3.4-5.0)
[2021-10-06] MEDS ORDERED: ACET-8386 PO (18:50)
[2021-10-06] MEDS ORDERED: BEN10 PO (18:50)
[2021-10-06] MEDS ORDERED: CONJ0.6288 VG (19:20)
[2021-10-06] MEDS ORDERED: ATA25 PO (19:20)
[2021-10-06 19:24] VITALS: BP 137/83
--- NOTE | 2021-10-06 19:24 | NUR ---
Patient discharged with v/s stable. Written and verbal after care instructions given and explained. Patient alert, oriented and verbalized understanding of instructions. Ambulatory with steady gait. All questions addressed prior to discharge. ID band removed. Patient advised to follow up with PMD. Rx of ATARAX, BENTYL, NORCO, MOTRIN & PREMARIN given. Patient educated on indication of medication including possible reaction and side effects. Opportunity to ask questions provided and answered.
== END 2021-10-06 19:24 | disposition home or self-care (01) ==
LOC: MED 15:52
DX: R10.84 Generalized abdominal pain (principal); E11.9 Type 2 diabetes mellitus without complications; I10 Essential (primary) hypertension; Z79.899 Other long term (current) drug therapy; Z79.82 Long term (current) use of aspirin; Z79.84 Long term (current) use of oral hypoglycemic drugs; Z98.890 Other specified postprocedural states
CPT/HCPCS: 36415; 74176; 80053; 81002; 83690; 85025; 96374; 99284; J1885; J7030

== ENCOUNTER 2021-11-11 14:28 | Emergency (ER) | payer OTHER ==
[~2021-11-11] VITALS: Ht 154.9 cm; Wt 59.5 kg
[~2021-11-11 14:28] MED LIST changes: +ACET-8386 PO; +ATA25 PO; +BEN10 PO; +CONJ0.6288 VG; +METF-346 PO; -METF500T PO
[2021-11-11 14:30] VITALS: BP 167/94
[2021-11-11] MEDS ORDERED: ATI.5 PO (15:39)
--- NOTE | 2021-11-11 15:54 | NUR ---
PT SEEN AND TREATED BY LITO CRUZ, NO NURSING INTERVENTIONS PROVIDED
--- NOTE | 2021-11-11 15:55 | NUR ---
Patient discharged with v/s stable. Written and verbal after care instructions ABOUT PANIC ATTACK AND GENERALIZED ANXIETY DISORDER given and explained. Patient verbalized understanding. Ambulatory with steady gait. All questions addressed prior to discharge. Advised to follow up with PMD.
== END 2021-11-11 15:55 | disposition home or self-care (01) ==
LOC: MED 14:28
DX: F41.9 Anxiety disorder, unspecified (principal); E11.9 Type 2 diabetes mellitus without complications; I10 Essential (primary) hypertension; Z76.0 Encounter for issue of repeat prescription
CPT/HCPCS: 99281; 99282; 99283

== ENCOUNTER 2021-12-29 15:14 | Emergency (ER) | payer OTHER ==
[~2021-12-29] VITALS: Ht 154.9 cm; Wt 60.3 kg
[2021-12-29 15:28] VITALS: BP 193/103
--- NOTE | 2021-12-29 15:32 | NUR ---
PT TO WAIT IN LOBBY.
[2021-12-29 15:59] LABS: BASOPHILS # (AUTO) 0.1 K/uL (0.00-0.22); BASOPHILS % (AUTO) 0.8 % (0.0-2.0); EOSINOPHILS # (AUTO) 0.2 K/uL (0-0.4); EOSINOPHILS % (AUTO) 1.9 % (0.0-4.0); HEMATOCRIT 40.9 % (36-48); HEMOGLOBIN 13.7 g/dL (12.0-16.0); LYMPHOCYTES # (AUTO) 4.3 K/uL (2.5-16.5); LYMPHOCYTES % (AUTO) 43.2 % (20.5-51.1); MEAN CORPUSCULAR HEMOGLOBIN 32 pg (27-31); MEAN CORPUSCULAR HGB CONC 34 g/dL (33-37); MEAN CORPUSCULAR VOLUME 93.8 fL (80-94); MONOCYTES # (AUTO) 0.9 K/uL (0.8-1.0); MONOCYTES % (AUTO) 8.6 % (1.7-9.3); NEUTROPHILS # (AUTO) 4.5 K/uL (1.8-7.7); NEUTROPHILS % (AUTO) 45.5 % (42.2-75.2); PLATELET COUNT (AUTO) 370 K/uL (140-450); RED BLOOD CELL COUNT(AUTO) 4.36 MIL/uL (4.20-5.40); RED CELL DISTRIBUTION WIDTH 14.1 % (11.6-13.7); WHITE BLOOD COUNT (AUTO) 9.9 K/uL (4.8-10.8)
--- NOTE | 2021-12-29 17:46 | NUR ---
DR ANDERSEN AT BEDSIDE EVALUATING PT
[2021-12-29] MEDS: KETOROLAC 60 MG/2 ML VIAL IM ONE (17:56)
[2021-12-29] MEDS ORDERED: ATA25 PO (17:57)
[2021-12-29] MEDS ORDERED: IBUP-2213 PO (17:57)
--- NOTE | 2021-12-29 18:00 | NUR ---
61YR OLD FEMALE BIB SELF VAG PAIN /PELVIC PAIN D4DROBRT. HAD HYSTERTOMY 2YRS AGO. PAIN LAST 6MONTHS. 03/27 DENIES BLEEDING OR DISCHARGE. BURNING SHARP VAG PAIN. PAIN WITH URINATION. HAD CHRONIC UTIS FOR LAST 6MONTHS. HAS APPT WITH DOCTOR IN A WEEK. NKDA HTN
[2021-12-29 18:19] VITALS: BP 143/92
[2021-12-29 18:55] LABS: APPEARANCE,URINE CLEAR (CLEAR); BILIRUBIN,URINE NEGATIVE (NEGATIVE); BLOOD, URINE NEGATIVE (NEGATIVE); COLOR,URINE YELLOW (YELLOW); LEUKOCYTE ESTERASE ,URINE NEGATIVE (NEGATIVE); NITRITE, URINE NEGATIVE (NEGATIVE); UGLUCOSE NEGATIVE (NEGATIVE)
== END 2021-12-29 18:19 | disposition home or self-care (01) ==
LOC: MED 15:14
DX: R10.30 Lower abdominal pain, unspecified (principal); I10 Essential (primary) hypertension; E11.9 Type 2 diabetes mellitus without complications; Z79.4 Long term (current) use of insulin; Z79.899 Other long term (current) drug therapy; Z90.710 Acquired absence of both cervix and uterus
CPT/HCPCS: 36415; 76830; 81003; 85025; 96372; 99284; J1885; Q0092

== ENCOUNTER 2022-04-23 11:24 | Inpatient (IN) | payer OTHER ==
[~2022-04-23] VITALS: Ht 154.9 cm; Wt 59.9 kg
--- NOTE | 2022-04-23 00:30 | NUR ---
CALLED BENTON RUBALCAVA IN ER TO VERIFY THE MEDICATION THAT SHE GAVE TO PT BECAUSE IT WAS NOT DOCUMENTED. SHE SAID HE GAVE THE SCHEDULED MEDICINE. Addendum: 04/24/22 at 0123 by Daphney Brooke RN RESENDIZ TIME
[2022-04-23 11:35] VITALS: BP 163/88
[2022-04-23] MEDS ORDERED: ASPIRIN 325 MG TAB PO ONE (12:00)
[2022-04-23 12:20] LABS: BASOPHILS # (AUTO) 0.1 K/uL (0.00-0.22); BASOPHILS % (AUTO) 0.6 % (0.0-2.0); EOSINOPHILS # (AUTO) 0.2 K/uL (0-0.4); EOSINOPHILS % (AUTO) 2.1 % (0.0-4.0); HEMOGLOBIN 11.9 g/dL (12.0-16.0); LYMPHOCYTES # (AUTO) 1.7 K/uL (2.5-16.5); LYMPHOCYTES % (AUTO) 20.8 % (20.5-51.1); MEAN CORPUSCULAR HEMOGLOBIN 32 pg (27-31); MEAN CORPUSCULAR HGB CONC 34 g/dL (33-37); MEAN CORPUSCULAR VOLUME 93.3 fL (80-94); MONOCYTES % (AUTO) 12.1 % (1.7-9.3); NEUTROPHILS # (AUTO) 5.4 K/uL (1.8-7.7); NEUTROPHILS % (AUTO) 64.4 % (42.2-75.2); PLATELET COUNT (AUTO) 398 K/uL (140-450); RED BLOOD CELL COUNT(AUTO) 3.75 MIL/uL (4.20-5.40); RED CELL DISTRIBUTION WIDTH 13.4 % (11.6-13.7); WHITE BLOOD COUNT (AUTO) 8.4 K/uL (4.8-10.8)
--- NOTE | 2022-04-23 12:42 | NUR ---
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 NSR ON MONITOR. PT TAKEN TO CT
[2022-04-23 12:58] LABS: ALBUMIN 3.4 g/dL (3.4-5.0); ASPARTATE AMINOTRANSFERASE 13 U/L (15-37); CARBON DIOXIDE 23.8 mmol/L (21-32); CREATININE 1.2 mg/dL (0.6-1.3); GFR ARICAN-AMERICAN 58 mL/min (>90); GLUCOSE 123 mg/dL (74-106); TOTAL BILIRUBIN 0.3 mg/dL (0.0-1.0); UREA NITROGEN, BLOOD 24 mg/dL (7-18)
[2022-04-23 13:04] LABS: ANION GAP 14.5 (8-16); CHLORIDE 96 mmol/L (98-107); POTASSIUM 3.3 mmol/L (3.5-5.1); SODIUM SERUM 131 mmol/L (136-145)
[2022-04-23] MEDS ORDERED: NACL 0.9% 1,000 ML IV ONE (13:50)
[2022-04-23] MEDS ORDERED: POTASSIUM CHLORIDE 10 MEQ TABER PO ONE (13:50)
[2022-04-23] MEDS ORDERED: MAGNESIUM OXIDE 400 MG TAB PO PRN (14:15)
[2022-04-23] MEDS ORDERED: KCL 20 MEQ/WATER INJ PREMIX 200 ML IV PRN (14:15)
[2022-04-23] MEDS ORDERED: POTASSIUM CHLORIDE 10 MEQ TABER PO PRN (14:15)
[2022-04-23] MEDS ORDERED: MAG SULF 2000 MG/WATER PREMIX 50 ML IV PRN (14:15)
[2022-04-23] MEDS ORDERED: IBUPROFEN 600 MG TAB PO ONE (15:35)
[2022-04-23] MEDS ORDERED: CHOL100013 PO (16:03)
[2022-04-23] MEDS ORDERED: OMEP-278 PO (16:03)
[2022-04-23] MEDS ORDERED: LINA145C PO (16:03)
[2022-04-23] MEDS ORDERED: HYDR25TA32 PO (16:03)
[2022-04-23] MEDS ORDERED: LATA2.5S14 OP (16:03)
[2022-04-23] MEDS ORDERED: LINA72CA PO (16:03)
[2022-04-23] MEDS ORDERED: BENA40TA97 PO (16:03)
[2022-04-23] MEDS ORDERED: METO-624 PO (16:03)
--- NOTE | 2022-04-23 18:00 | NUR ---
REINA SWAB COLLECTED AND WALKED TO LAB
--- NOTE | 2022-04-23 18:39 | NUR ---
PAGED ADMITTING SECOND TIME FOR PAIN MEDICATION ORDERS PENDING CALL BACK
--- NOTE | 2022-04-23 19:30 | NUR ---
ASSUMED CARE OF PT. PT IN POSITION OF COMFORT. C/O PAIN. PT UPDATED ON POC WITH FULL RETURED VERBAL UNDERSTANDING. PT PROVIDED A SNACK AND REQUESTING PAIN MEDICATION. 03/27 CHRONIC PAIN TO BACK AND THROUGHOUT BODY. PT STATES HER BONES HURT. VSS. WILL CONTINUE TO MONITOR.
[2022-04-23] MEDS: PREGABALIN 25 MG CAP PO SCH (21:00)
[2022-04-23] MEDS ORDERED: ATORVASTATIN 20 MG TAB PO SCH (21:00)
--- NOTE | 2022-04-23 21:00 | NUR ---
SPOKE WITH DR. GUZMÁN FOR PAIN ORDERS. PT AWARE. WILL FOLLOW THROUGH WITH ORDERS. AWAITING BED.
--- NOTE | 2022-04-23 21:49 | NUR ---
REPORT CALLED TO RAYSA BHARDWAJ WITH FULL RETURNED VERBAL UNDERSTANDING. PT GOING TO 120B VIA WC AND TELE. NO S/S OF DISTRESS NOTED.
--- NOTE | 2022-04-23 22:00 | NUR ---
PT ADMITTED TO [facility] DEPART FROM ER DEPART THRU [facility]. PT IS AOX4, AMBULATORY, ABLE TO VERBALIZE NEEDS AND ABLE TO FOLLOW COMMANDS. PT IS ON ROOM AIR AND ON CARDIAC DIET. PT HAS SALINE LOCK ON RIGHT FOREARM GAUGE 22. PT SKIN IS INTACT. ALL SAFETY MEASURES IMPLEMENTED. BED IN LOW POSITION, BED WHEELS ON LOCKED AND CALL LIGHT WITHIN REACH.
--- NOTE | 2022-04-23 22:25 | NUR ---
NOTIFIED DR. GUZMÁN REGARDING PT'S SLEEPING MEDICATION. WILL WAIT FOR THE MD'S REPLY.
--- NOTE | 2022-04-23 23:00 | NUR ---
CALLED BENTON RUBALCAVA IN ER TO VERIFY THE MEDICATION THAT SHE GAVE TO PT BECAUSE IT WAS NOT DOCUMENTED. SHE SAID SHE GAVE THE SCHEDULED MEDICATION
--- NOTE | 2022-04-24 01:00 | NUR ---
PT IS SLEEPING. CHEST RISE AND FALL SYMMETRICALLY NOTED. RESPIRATION IS EVEN AND UNLABORED. ALL SAFETY MEASURES IMPLEMENTED. BED IN LOW POSITION, BED WHEELS ON LOCKED AND CALL LIGHT WITHIN REACH.
[2022-04-24] MEDS: HYDROcodone/APAP 5/325 MG 1 TAB TAB PO PRN ×3 (02:27→14:36)
--- NOTE | 2022-04-24 02:27 | NUR ---
PT WAS GIVEN PRN PAIN MEDICATION DUE TO PAIN ON LOWER EXTREMITIES WITH PAIN SCALE 6/10. ALL SAFETY MEASURES WAS GIVEN. BED IN LOW POSITION, BED WHEELS ON LOCKED AND CALL LIGHT WITHIN REACH.
[2022-04-24 04:00] VITALS: BP 116/78
[2022-04-24 05:42] LABS: BASOPHILS # (AUTO) 0.1 K/uL (0.00-0.22); BASOPHILS % (AUTO) 0.9 % (0.0-2.0); EOSINOPHILS # (AUTO) 0.3 K/uL (0-0.4); EOSINOPHILS % (AUTO) 3.7 % (0.0-4.0); HEMATOCRIT 34.2 % (36-48); HEMOGLOBIN 11.9 g/dL (12.0-16.0); LYMPHOCYTES # (AUTO) 2.4 K/uL (2.5-16.5); LYMPHOCYTES % (AUTO) 29.2 % (20.5-51.1); MEAN CORPUSCULAR HEMOGLOBIN 32 pg (27-31); MEAN CORPUSCULAR HGB CONC 35 g/dL (33-37); MEAN CORPUSCULAR VOLUME 92.6 fL (80-94); MONOCYTES % (AUTO) 12.7 % (1.7-9.3); NEUTROPHILS # (AUTO) 4.3 K/uL (1.8-7.7); NEUTROPHILS % (AUTO) 53.5 % (42.2-75.2); PLATELET COUNT (AUTO) 417 K/uL (140-450); RED BLOOD CELL COUNT(AUTO) 3.69 MIL/uL (4.20-5.40); RED CELL DISTRIBUTION WIDTH 13.5 % (11.6-13.7); WHITE BLOOD COUNT (AUTO) 8.1 K/uL (4.8-10.8)
[2022-04-24 06:06] LABS: POTASSIUM 3.6 mmol/L (3.5-5.1)
[2022-04-24 06:20] LABS: ALBUMIN 3.2 g/dL (3.4-5.0); ANION GAP 16.6 (8-16); MAGNESIUM 1.8 mg/dL (1.8-2.4); PHOSPHORUS 3.5 mg/dL (2.5-4.9); TOTAL BILIRUBIN 0.2 mg/dL (0.0-1.0)
--- NOTE | 2022-04-24 07:20 | NUR ---
PT IS STABLE. ENDORSED PT TO MORNING SHIFT NURSE FOR CONTINUITY OF CARE.
--- NOTE | 2022-04-24 07:42 | NUR ---
got report from the night nurse, pt awake and asking for pain med, discussed poc [email or web address]
[2022-04-24 08:00] VITALS: BP 110/73
[2022-04-24] MEDS: PREGABALIN 25 MG CAP PO SCH (08:40)
[2022-04-24] MEDS ORDERED: ASPIRIN 81 MG TAB.CHEW PO SCH (09:00)
--- NOTE | 2022-04-24 10:28 | NUR ---
PATIENT HAS BEEN SCREENED AND CATEGORIZED LOW NUTRITION RISK. PATIENT WILL BE SEEN WITHIN 7 DAYS OF ADMISSION. 04/30/[address] ETHAN D[address]
[2022-04-24 12:00] VITALS: BP 110/76
[2022-04-24 15:43] VITALS: BP 110/76
--- NOTE | 2022-04-24 16:00 | NUR ---
PT DISCHARGED HOME AND DISCHARGE INSTRUCTION GIVEN, IV AND ID BAND REMOVED , PT ESCORTED TO THE CAR WITHOUT DISCOMFORT.[email or web address]
--- NOTE | 2022-04-24 17:21 | NUR ---
DC PLANNING SW MET WITH PT AT BEDSIDE TO COMPLETE ASSESSMENT. PATIENT REPORTS RESIDING WITH HER PARTNER AT THE ADDRESS LISTED ON FILE. PATIENT IDENTIFIED PRISCA POLANCO, PARTNER, AND JOSHUA LAURA, DAUGHTER, EMERGENCY CONTACTS. PATIENT DENIES HAVING AD IN PLACE AND ACCEPTED AD OFFERED BY SLOAN. PATIENT REPORTS MEETING WITH PCP, NEEDED, LAST VISIT; 6 MONTHS AGO. SW SPOKE TO PATIENT ABOUT IMPORTANCE OF FOLLOW UP CARE , PT ACKNOWLEDGED. SW OFFERED TO SCHEDULE F/UP APPT FOR PATIENT HOWEVER, PT DECLINED. PATIENT REPORTS SHE WILL SCHEDULE F/UP ON HER OWN. PT REPORTS MEDICATION COMPLIANCE AND DENIES BARRIERS IN ACCESSING NEEDED MEDICATIONS. PATIENT REPORTS RECEIVING MEDICATION FROM [facility] ON [address] IN [place] WHEN NEEDED. PATIENT REPORTS BEING AMBULATORY WITH OCCASIONAL DME ASSISTANCE; CANE. PATIENT REQUIRES ASSISTANCE WITH [facility] WHICH PATIENTS PARTNER AIDS IN. PATIENT RECEIVES [facility] CAREGIVING HOURS OF 84HRS/MONTH. CAREGIVER RESIDES WITH PT. PT REPORTS MENTAL HEALTH HX OF DEPRESSION AND ANXIETY AND REPORTS MEETING WITH THERAPIST NEEDED, NEXT THERAPY SESSION SCHEDULED FOR 05/16. PT REPORTS SUBSTANCE USE HX OF HEROINE USE AND COCAINE USE, USE SPANNING OVER 20 YRS. PATIENT REPORTS BEING SOBER FOR THE LAST 14 YRS. PT REPORTS ADEQUATE FRIEND AND FAMILY SUPPORT THAT CONTINUOUSLY AID IN SOBRIETY. PATIENT REPORTS ADEQUATE FOOD IN THE HOME AND REPORTS RECEIVING [employer] BENEFITS OF 230/MONTH. PT REPORTS DC PLAN IS FOR HER TO RETURN HOME WITH FAMILY PROVIDING TRANSPORTATION, WHEN MEDICALLY STABLE.
== END 2022-04-24 17:14 | disposition home or self-care (01) | DRG 47 ==
LOC: MED 11:24 → MTU 14:22 → OBSVTOIN 14:22 → MTU 21:21
PROVIDERS: ADMIT Hospitalist; ATTEND Emergency Medicine
DX: G45.9 Transient cerebral ischemic attack, unspecified (principal); I24.9 Acute ischemic heart disease, unspecified; E87.1 Hypo-osmolality and hyponatremia; M94.0 Chondrocostal junction syndrome [Tietze]; E11.9 Type 2 diabetes mellitus without complications; E87.6 Hypokalemia; M54.30 Sciatica, unspecified side; Z20.822 Contact with and (suspected) exposure to COVID-19; G89.29 Other chronic pain; I10 Essential (primary) hypertension; Z90.710 Acquired absence of both cervix and uterus; Z79.1 Long term (current) use of non-steroidal anti-inflammatories (NSAID)
CPT/HCPCS: 36415; 70450; 71045; 80053; 83735; 84100; 84484; 85025; 85610; 85730; 87081; 93005; 99285; J1644; Q0092

== ENCOUNTER 2022-11-06 16:15 | Emergency (ER) | payer OTHER ==
[~2022-11-06] VITALS: Ht 154.9 cm; Wt 61.2 kg
[~2022-11-06 16:15] MED LIST changes: -ACET-8386 PO; -ASPI-1822 PO; -BEN10 PO; -BENA20TA PO; +BENA40TA97 PO; +CHOL100013 PO; -CONJ0.6288 VG; +HYDR25TA32 PO; +LATA2.5S14 OP; +LINA145C PO; +LINA72CA PO; -LORA-476 PO; -METF-346 PO; +METO-624 PO; -METO25TA PO; +OMEP-278 PO
[2022-11-06 16:17] VITALS: BP 170/92
--- NOTE | 2022-11-06 18:47 | NUR ---
RECIEVED CALL FROM ADMIT STAFF THAT PT NO LONGER WISHES TO BE EVALUATED. PT LWBS
== END 2022-11-06 18:47 | disposition left against medical advice (07) ==
LOC: MED 16:15
DX: R20.0 Anesthesia of skin (principal); R06.02 Shortness of breath; Z53.21 Procedure and treatment not carried out due to patient leaving prior to being seen by health care provider
CPT/HCPCS: 99281

== ENCOUNTER 2023-07-14 17:09 | Emergency (ER) | payer OTHER ==
[~2023-07-14] VITALS: Ht 162.6 cm; Wt 77.1 kg
[2023-07-14 17:14] VITALS: BP 165/102; PULSE 101; RESP 20; TEMP 98.1; O2SAT 95
[2023-07-14] MEDS ORDERED: KETOROLAC 60 MG/2 ML VIAL IM ONE (20:05)
[2023-07-14 20:21] VITALS: O2SAT 98
[2023-07-14] MEDS ORDERED: ENALAPRIL 5 MG TAB PO ONE (20:35)
[2023-07-14] MEDS ORDERED: ACET-503 PO (20:45)
[2023-07-14] MEDS ORDERED: MORPHINE SULFATE 4 MG/ML SYR IM ONE (21:20)
[2023-07-14 22:02] VITALS: BP 184/95; PULSE 93; RESP 18
== END 2023-07-14 22:02 | disposition home or self-care (01) ==
LOC: MED 17:09
DX: R51.9 Headache, unspecified (principal); I10 Essential (primary) hypertension; E11.9 Type 2 diabetes mellitus without complications; Z79.4 Long term (current) use of insulin; Z79.899 Other long term (current) drug therapy
CPT/HCPCS: 96372; 99284; J1885; J2270